=== PATIENT | male | born 1970 | race Caucasian/White ===

== ENCOUNTER 2017-05-09 19:47 | Inpatient (IN) | payer OTHER ==
[~2017-05-09] VITALS: Ht 177.8 cm; Wt 210.7 kg
[2017-05-09 20:05] VITALS: BP 210/97; PULSE 108; RESP 16; O2SAT 99
--- NOTE | 2017-05-09 20:51 | ED.REPORT ---
HPI-General Illness Date of Service May 09, 2017 ED Provider: Tomy Syed MD Patient is a 46 year old male with a hx of HTN and DM with a mechanical aortic valve on Warfarin who presents to the ED complaining of rectal bleeding onset this morning. THe blood is bright red and was on the toilet paper and in the toilet bowl. Per , it was dripping down his legs onto the floor. When he got up for dinner, it had soaked through his pants onto his couch. This has been persistent throughout the day today and so he decided, come in to the emergency department. No notable alleviating or exacerbating factors. He denies pain, dysuria, fever, chills, chest pain, SOB, lightheadedness, or any other symptoms. He has had less severe rectal bleeding previously. Nursing Notes Stated Complaint: RECTAL BLEEDING Chief Complaint: General Complaint Nursing Notes Reviewed: Yes Allergies: Coded Allergies: amoxicillin (Verified Allergy, Unknown, 05/09/17) hydrocodone (Verified Allergy, Unknown, 05/09/17) Scheduled Allopurinol (Allopurinol) 100 Mg Tablet 100 MG PO BID Amlodipine (Amlodipine) 10 Mg Tablet 10 MG PO HS Atorvastatin Calcium (Atorvastatin Calcium) 40 Mg Tablet 40 MG PO DAILY Insulin Detemir (Levemir Flextouch) 100 Unit/1 Ml Insuln.pen 80 UNIT SQ HS Insulin Detemir (Levemir Flextouch) 100 Unit/1 Ml Insuln.pen 70 UNIT SQ MORNING Lisinopril (Lisinopril) 40 Mg Tablet 40 MG PO MORNING Metformin (Metformin) 500 Mg Tablet 500 MG PO BID Metoprolol Tartrate (Metoprolol Tartrate) 100 Mg Tablet 100 MG PO BID Multivitamin (Multivitamins) 1 Each Capsule 1 EACH PO DAILY Warfarin Sodium (Warfarin Sodium) 7.5 Mg Tablet 7.5 MG PO ,,,,SAT,TUE Warfarin Sodium (Warfarin Sodium) 10 Mg Tablet 10 MG PO TUESDAY General Time Seen by MD: 20:42 Chief Complaint Other (Rectal bleeding) Hx Obtained From: Patient, Spouse Arrived By: Walk-in Sudden in Onset?: Yes Similar Sx Previous: Yes Past Medical History Past Medical History Mechanical aortic valve on Warfarin Reports: Diabetes mellitus, Hypertension Past Surgical History Aortic valve repair Surgical repair of vein in leg Reports: Appendectomy Smoking History Unknown if Ever Smoker Social History Alcohol Use: "Social" Drug Use: Denies drug use Other Social History: Review of Systems +rectal bleeding Full Review of Systems Constitutional: Denies: Chills, Fever Respiratory: Denies: Shortness of breath Cardiovascular: Denies: Chest pain Male: Denies Dysuria Neurologic: Denies: Lightheaded Complete sys rev & neg: except as marked. Physical Exam Vital Signs Vital Signs Date Time Temp Pulse Resp B/P Pulse Ox O2 Delivery O2 Flow Rate FiO2 05/09/17 22:00 118 23 187/72 98 Room Air 05/09/17 20:05 36.8 108 16 210/97 99 Room Air Initial VS: Reviewed, Vital signs abnormal General/Constitutional: Awake, Alert, Well appearing, Well developed, Well nourished Appearance / Presentation: Positive: Obese, morbidly Not diaphoretic. Head / Eyes: Atraumatic, Normocephalic EOM are normal. Pupils are equal, round, and reactive to light ENT: Airway patent Oropharynx is clear and moist. No oropharyngeal exudate. Neck: Supple no tracheal deviation. Respiratory / Chest: No respiratory distress Effort normal and breath sounds normal Heart Rate / Rhythm: Positive: Tachycardia regular rhythm. Equal and intact distal pulses throughout. Upper Extremities Upper Extremity / MS: Atraumatic Range of motion grossly intact, moving all extremities. No tenderness appreciated. Lower Extremity / Pelvis / MS: Atraumatic Range of motion grossly intact, moving all extremities. No tenderness appreciated. Skin: Warm, Dry no rashes or pallor appreciated. Rectal for Blood: Positive: Blood, grossly present Neurologic: Oriented X3, Speech NL Grossly nonfocal exam. Strength and sensation intact and equal to bilateral upper and lower extremities. Psychiatric: Affect NL, Mood NL Behavior appears normal. Interpretation & Diagnostics Lab Results Interpretation Result Diagram: 05/10/17 0053 05/09/172048 Test 05/09/17 20:49 White Blood Count 12.2th/mm3 (3.8-10.1) Red Blood Count 4.14mil/mm3 (4.40-5.80) Mean Corpuscular Volume 88.4fL (81-100) Mean Corpuscular Hemoglobin 27.5pg (27.0-35.0) Mean Corpuscular Hemoglobin Concent 31.1% (32.0-37.0) Red Cell Distribution Width 14.8% (12.3-15.4) Platelet Count 291bil/L (150-400) Neutrophils (%) (Auto) 75.7% (40-74) Lymphocytes (%) (Auto) 13.0% (14-46) Monocytes (%) (Auto) 7.3% (4-12) Eosinophils (%) (Auto) 2.9% (0-5) Basophils (%) (Auto) 0.5% (0-3) Prothrombin Time 26.3sec (8.1-12.5) Prothromb Time International Ratio 2.41ratio Sodium Level 133mEq/L (134-144) Potassium Level 4.5mEq/L (3.5-5.2) Chloride Level 97mEq/L (97-108) Carbon Dioxide Level 23mmol/L (18-29) Blood Urea Nitrogen 40mg/dL (6-24) Creatinine 1.68mg/dL (0.76-1.27) Estimat Glomerular Filtration Rate 47mL/min (>59) Glucose Level 172mg/dL (60-99) Calcium Level 9.4mg/dL (8.5-10.1) Total Bilirubin 0.3mg/dL (0.0-1.2) Aspartate Amino Transf (AST/SGOT) 15U/L (0-50) Alanine Aminotransferase (ALT/SGPT) 14U/L (0-44) Alkaline Phosphatase 154U/L (25-150) Total Protein 8.1g/dL (6.4-8.4) Albumin 3.2g/dL (3.4-5.0) Hold Gaona Top Tube Received (Received) ECG Interpretation ECG Interpretation: Sinus tachy rate 104 Time: 00:32 Interpreted by: ED physician Re-Eval/Medical Decision Med Decision/Clinical Course In summary, 46-year-old male with a past medical history notable for hypertension, diabetes, aortic valve replacement on warfarin, and morbid obesity presenting to the ED for evaluation of bright red blood per rectum since earlier today. No abdominal pain or tenderness that would suggest a surgical cause at this time. Patient tachycardic upon arrival. Gastroenterology consulted. Patient's INR is therapeutic, will need to be reversed. Consented for FFP. Patient also given vitamin K. Patient will be admitted to a monitored bed for further management and evaluation, repeat CBC. I am concerned that he could decline. Gastroenterology will perform a scope in the morning unless the patient has a change in his clinical status overnight. This was discussed with the hospitalist. Patient agreeable to the plan as stated, no further questions. Time of Eval: 23:15 Re-Evaluation/Progress Note: Rechecked patient. He feels like he is having more bleeding. Discussed plan for admission. Patient understands and agrees with plan. All questions addressed at this time. Consultation #1: Referral / Consult Name: Deion Mercedes MD Call Returned at: 22:38 Note: Discussed pt's case with GI. Reverse with FFP. Admit to hospital. Consultation #2: Referral / Consult Name: Dominik Garcia MD Consulted With: Hospitalist Call Returned at: 22:52 Manager Underwriting: Will see patient, Agrees with eval, Agrees with plan, Accepts admit Note: Discussed pt's case. Accepts admit. Counseled Regarding: Diagnosis, Lab results, Need for admission Discharge & Departure Primary Impression: Acute GI bleeding Disposition: ADMITTED TO HOSPITAL Discharge Condition All VS Reviewed: Yes Condition: Stable Referrals: ORVILLE JONES DO (PCP) Crit Care Except Billable Proc Time Spent: 30-74 minutes Services Performed: Patient management by me, Time spent at bedside, Reviewing test results, Discussing patient care, Documentation in record Critical Care Notes: Please see MDM Scribe Attestation Portions of this note were transcribed by Renay Wilks. I, Dr. Syed personally performed the history, physical exam and medical decision-making; I reviewed and confirmed the accuracy of the information in the transcribed note. Signed by: Renay Wilks 05/09/17, 0935 copies to: ORVILLE JONES William B MD May 09, 2017 20:51 RENAY WILKS May 09, 2017 22:17
[2017-05-09 20:58] LABS: BASOPHILS % (AUTO) 0.5 % (0-3); EOSINOPHILS % (AUTO) 2.9 % (0-5); MONOCYTES % (AUTO) 7.3 % (4-12); Mean Corpuscular Hemoglobin 27.5 pg (27.0-35.0); Mean Corpuscular Volume 88.4 fL (81-100); NEUTROPHILS % (AUTO) 75.7 % (40-74); Platelet Count 291 bil/L (150-400)
[2017-05-09 21:16] LABS: INR 2.41 ratio
[2017-05-09 22:00] VITALS: BP 187/72; PULSE 118; RESP 23; O2SAT 98
[2017-05-09] MEDS ORDERED: 0.9% Sodium Chloride 1,000 ML IV ONE (22:36)
[2017-05-09] MEDS ORDERED: Polyethylene Glycol (PEG) 17 Gm Powder PO PRN (23:05)
[2017-05-09] MEDS ORDERED: Ondansetron 2 mg/mL 2 mL Inj IVPUSH PRN (23:05)
[2017-05-09] MEDS ORDERED: Alum-Mag Hydrox-Simeth 30 mL Suspension PO PRN (23:05)
[2017-05-09] MEDS ORDERED: LISI40TA PO (23:32)
[2017-05-09] MEDS ORDERED: INSU100I25 SQ ×2 (23:32)
[2017-05-09] MEDS ORDERED: WARF10TA4 PO (23:32)
[2017-05-09] MEDS ORDERED: AMLO10TA3 PO (23:32)
[2017-05-09] MEDS ORDERED: ATOR40TA69 PO (23:32)
[2017-05-09] MEDS ORDERED: ZYL100 PO (23:32)
[2017-05-09] MEDS ORDERED: METO100T3 PO (23:32)
[2017-05-09] MEDS ORDERED: MULT1CAP33 PO (23:32)
[2017-05-09] MEDS ORDERED: WARF7.5T4 PO (23:32)
[2017-05-09] MEDS ORDERED: 0.9% Sodium Chloride 250 ML IV ONE (23:45)
[2017-05-09] MEDS ORDERED: diphenhydrAMINE 25 mg Capsule PO ONE (23:45)
[2017-05-09] MEDS ORDERED: Phytonadione (Adult) 10 MG in Dextrose 5%-Pha MIX 50 ML IV ONE (23:45)
[2017-05-09 23:50] VITALS: PULSE 123; RESP 24; O2SAT 95
--- NOTE | 2017-05-09 23:55 | PCM.HPMED ---
Subjective Date of Service May 09, 2017 Primary Provider: Admitting Physician: Dominik Garcia MD Primary Care Physician: Wendy Morales DO Attending Physician: Dominik Garcia MD Chief Complaint: Bright red blood per rectum History of Present Illness: Patient is a morbidly obese 46-year-old gentleman history of hypertension, congestive heart failure, bicuspid aortic valve status post mechanical valve placement, warfarin using, presents with 1 day bright red blood per rectum. First onset this morning when first using the commode, denies any lightheadedness, dizziness, pain, said he typically strains a little with defecation. Came to the emergency department after noticing he soaked through his pants and into the couch cushion this afternoon. Claims to have one instance of this before approximately a year ago was not described and self resolved. Denies any history of known hemorrhoids. Denies any lightheadedness , dizziness, chest pain, shortness of breath, constipation or diarrhea, no nausea or vomiting, no weakness, no dysuria, no numbness weakness tingling in his arms anterior legs, no changes in vision, no confusion. In the ER he was afebrile, heart rate 108, respiratory is 18 heart rate 210/97 recheck 2 hours later he remained tachycardic, became tachypneic 23 breaths per minute, heart rate mildly decreased to 187/72 12.2 white blood cells, hemoglobin 11.4, neutrophils 75.7%, sodium 133 BUN 40, creatinine 1.68, glucose 172, alkaline phosphatase 154, albumin 3.2 INR 2.41 Patient was given FFP and vitamin K and metoprolol IV push in the emergency department. Dr. Mercedes, patrol conductor health analytics consultant, was notified by the emergency department of the patient and according to documentation agrees to see patient in the morning. Review of Systems: A comprehensive review of systems was conducted with the patient and found to be negative except as above in the history of presenting illness. Allergies Coded Allergies: amoxicillin (Verified Allergy, Unknown, 05/09/17) hydrocodone (Verified Allergy, Unknown, 05/09/17) Home Medications Allopurinol 100 mg by mouth twice a day Amlodipine 10 mg by mouth at night before bed Atorvastatin 40 mg by mouth daily Insulin detemir 80 units subcutaneously every night before bed Insulin detemir 70 units subcutaneous every morning Lisinopril 40 mg every morning by mouth Metoprolol 100 mg by mouth twice a day Multivitamin once a day Warfarin 7-1/2 mg by mouth Tuesday, Tuesday, , Tuesday, Tuesday, Tuesday Warfarin 10 mg by mouth every Tuesday. PMH Morbid obesity Hyperlipidemia Chronic kidney disease stage III Necrobiosis lipoidica diabeticorum Diabetes mellitus type II insulin using Hypertension Surgical History Appendectomy in childhood Mechanical valve placement Family History Father the seizure disorder Mother multiple sclerosis Social History Hx Alcohol Use: Yes (socially) Hx Substance Use: No Hx Tobacco Use: No Smoking Status: Never Smoker Living Arrangement: with Family Exam Vital Signs Vital Sign - Last Date Time Temp Pulse Resp B/P Pulse Ox O2 Delivery O2 Flow Rate FiO2 05/09/17 22:00 118 23 187/72 98 Room Air 05/09/17 20:05 36.8 Exam General: Laying in bed, no apparent distress. Morbidly obese HEENT: Normocephalic, atraumatic, EOMI grossly, mucous membrane moist, neck supple without lymphadenopathy, PERRLA. Cardiovascular: Tachycardic, regular rhythm, audible click from mechanical valve 04/26, peripheral pulses 2/4 equal bilaterally Pulmonary: Clear to auscultation bilaterally, no W/R/R. Abdominal: Soft to palpation, bowel sounds present 4, no hepatosplenomegaly. Negative rebound. GI: Rectum is grossly bloody, clotted blood over anus, no bleeding hemorrhoids seen on visual exam of the superficial anus. engorged hemorrhoid posterior anus. Extremities: Severe bilateral lower extremities edema, hyperpigmentation, moderate pitting, some excoriation, no open sores bleeding or weeping. Neuro: Neurologically grossly intact, strength is equal bilaterally upper and lower extremities. MSK: Gait is normal, able to move extremities on their own volition, strength 5 out of 5 equal bilaterally to upper and lower extremities. Lab and Diagnostics Result Diagram: 05/09/17204805/09/172048 Assessment & Plan 46-year-old gentleman with hypertension, diabetes light is type II insulin using , mechanical valve anticoagulated at therapeutic INR presents with 1 day of bite red blood per rectum, nonpainful, tachycardic and hypertensive. Acute lower gastrointestinal hemorrhage, present on admission, active INR 2.4, tachycardic, hemoglobin 11.4 Administer FFP 4 unit, 10 mg vitamin K IV Recheck H&H Cross match and hold 2 units PRBC Transfusion threshold hemoglobin of [address] Mercedes consulted, anticipate endoscopy tomorrow a.m. Acute Hypertensive urgency, present on admission, active No headaches, no chest pain, no shortness of breath claims to have taken his medications Metoprolol IV push 5 mg every 5 minutes for total of 3 for blood pressure greater than 170, and tachycardia. Now. Continue home blood pressure medications:Amlodipine 10 mg by mouth nightly, lisinopril 40 mg every morning by mouth, metoprolol 100 mg by mouth twice a day Tachycardia, chronicity unknown known, POA, active Patient has remained tachycardic throughout his entire time in the emergency department Patient states that he has had a fast heart rate like this for a little over a month since his last doctor's visit. EKG Placed patient on telemetry Chronic diabetes mellitus type II insulin using, POA, active Hemoglobin A1c as of : 9.3%, blood glucose today 172 Medium-dose correctional insulin Continue home detemir dosage Diabetes education Chronic kidney disease stage III, POA, stable Creatinine 1.68, BUN 40, review of outpatient labs for over a year shows BUN chronically elevated, 39 as of 04/07/2017. Creatinine chronically elevated 1.42 as of the same date. Creatinine mildly elevated compared to 1 month ago, IV fluids 100 mL per hour, normal saline Reassess with morning chemistries If continues to worsen consider nephrology consultation Patient admitted under inpatient status with expected length of stay > 2 midnights for severity of present symptoms, complexities of treatment plan and risk for adverse events Pain Evaluation: Adequate Pain Control GI Prophylaxis: Not indicated VTE Prophylaxis Indicated: Contraindicated Resuscitation Status: CPR: Attempt Resuscitation Attending Statement The patient was seen and examined together with Dr. Hoyos on 05/09 and I agree with the history, exam and plan as outlined in the note above. Wesley De Leon DO May 09, 2017 23:55 Dominik Garcia MD May 10, 2017 19:09
[2017-05-09] MEDS: MeTOProlol 1 mg/mL 5 mL Inj IVPUSH SCH (23:56)
[2017-05-10] VITALS (32 sets, daily range): BP systolic 148–200; BP diastolic 64–112; PULSE 93–120; RESP 14–22; O2SAT 94–98
[2017-05-10] MEDS ORDERED: Dextrose 10% 250 ML IV PRN (00:15)
[2017-05-10] MEDS: MeTOProlol 1 mg/mL 5 mL Inj IVPUSH SCH ×4 (00:35→14:25)
[2017-05-10] MEDS: 0.9% Sodium Chloride 1,000 ML IV SCH ×2 (01:35→08:24)
[2017-05-10] MEDS ORDERED: METF500T4 PO (01:41)
[2017-05-10] MEDS: Insulin Human REGular 300 Unit/3 mL Inj SUBQ SCH ×4 (02:28→21:43)
--- NOTE | 2017-05-10 02:37 | NUR ---
admit note: pt. admitted for episode of rectal bleeding this am, pt. states was bright red. pt. had similar episode last year. pt. denies nausea, denies pain. transfusion of 4 units FFP's started.
[2017-05-10 05:22] LABS: BASOPHILS % (AUTO) 0.3 % (0-3); EOSINOPHILS % (AUTO) 2.5 % (0-5); MONOCYTES % (AUTO) 6.6 % (4-12); Mean Corpuscular Hemoglobin 27.4 pg (27.0-35.0); Mean Corpuscular Volume 88.6 fL (81-100); NEUTROPHILS % (AUTO) 76.2 % (40-74); Platelet Count 259 bil/L (150-400)
[2017-05-10 05:36] LABS: INR 1.49 ratio
--- NOTE | 2017-05-10 06:31 | NUR ---
GI bleed: bed change done this morning, pt. had bleeding through two pads w/ blood clots. INR down to 1.49 after 4 units FFP's, hgb 9.6 this am. Pt. is asymptomatic.
[2017-05-10] MEDS ORDERED: Labetalol 5 mg/mL 4 mL Inj IVPUSH ONE (07:35)
[2017-05-10] MEDS ORDERED: PEG/Electrolytes 4,000 mL Solution PO ONE ×2 (08:15→09:05)
[2017-05-10] MEDS: Lisinopril 40 Tablet PO SCH (08:20)
[2017-05-10] MEDS ORDERED: INSULIN DETEMIR 70 UNIT SQ SCH (08:30)
[2017-05-10] MEDS ORDERED: Labetalol 5 mg/mL 20 mL Inj IVPUSH ONE (08:40)
[2017-05-10] MEDS: 0.9% Sodium Chloride 250 ML IV SCH (08:42)
--- NOTE | 2017-05-10 08:44 | CONS ---
[address] [address] CONSULTATION REPORT PATIENT: DIANE TORRES : 1970 MR#: [id number] ADMIT: 05/09/2017 JOB ID: [id number] DATE OF SERVICE: HISTORY OF PRESENT ILLNESS: I had the pleasure of seeing this patient at [facility] for evaluation of GI bleeding. This is a 46-year-old gentleman with several medical issues including morbid obesity, high blood pressure, diabetes, mechanical aortic heart valve, on warfarin, who also has a history of chronic kidney disease stage 2, appendectomy, who came in with rectal bleeding for about a day. This happened about a year ago but not to this extent. His last bowel movement was yesterday morning. It is not clear whether this started after a bowel movement, but he had a bowel movement which was normal. Then, he started having slow dripping of bright red blood per rectum. This continued throughout the day. He did not have any abdominal pain, but a small amount of persistent blood was coming out of his rectum, and later clots were coming out. The patient was seen in the emergency department. He denied any lightheadedness, dizziness, but he was tachycardic, with severe hypertension. Hemoglobin in the ED was 11.4, and INR was elevated at 2.41. I was notified last night at 10:30 and, since he was bleeding, recommended reverse of anticoagulation and start the patient on GoLYTELY. Unfortunately, the patient did not receive GoLYTELY last night. However, he continued to have slow dripping of blood throughout the night. His INR is now 1.49, and his hemoglobin went from 11.4, at midnight 10.2, and now at 5 o'clock in the morning, 9.6. He is hemodynamically stable but a little bit on the tachy side. He denies any nausea, vomiting, fever, chills, headaches, blurred vision, dizziness, lightheadedness, chest pain, shortness of breath, abdominal pain, black stools. He denies any jaundice. PAST MEDICAL HISTORY: As above. PAST SURGICAL HISTORY: As above. SOCIAL HISTORY: He uses alcohol socially. Denies smoking. Denies use of drugs. FAMILY HISTORY: Noncontributory. MEDICATIONS AT HOME: Include allopurinol, amlodipine, atorvastatin, insulin, lisinopril, metformin, multivitamin, and Coumadin. MEDICATIONS HERE: Include allopurinol, metoprolol, insulin, multivitamin, Norvasc, Lopressor, Zestril, atorvastatin, MiraLAX, senna, Zofran, Maalox. PHYSICAL EXAMINATION: The patient is alert, oriented, comfortable. Temp 37.1, pulse 106, respirations 16, blood pressure 174/84. Head and neck: Obese neck. Could not appreciate lymphadenopathy. Lungs: Clear anteriorly. Cardiovascular: Regular rate and rhythm, with a mechanical click at S1. Abdomen: Soft, nontender, obese, and nondistended, with decreased bowel sounds. Extremities: No pitting edema of the ankles. Skin shows no jaundice. LABORATORY DATA: As above. IMPRESSION and PLAN: A 46-year-old gentleman who was anticoagulated for a mechanical aortic valve, comes in with rectal bleeding throughout the day, with downtrending of hemoglobin downward. He is hemoglobin is 9.6, and he says he still has slow dripping of red blood. He is a little bit tachycardic, but he is not symptomatic for hypovolemia otherwise. He has no chest pain, no shortness of breath. Most likely, this is rectal bleeding. Would like to get him ready for a colonoscopy. CLEMENTE
[2017-05-10] MEDS: Insulin GLARgine 100 Unit/mL Syringe SUBQ SCH ×2 (08:50→21:42)
[2017-05-10] MEDS ORDERED: MeTOProlol 1 mg/mL 5 mL Inj IVPUSH ONE (12:35)
--- NOTE | 2017-05-10 13:50 | PCM.PNMED ---
Subjective Date of Service May 10, 2017 Subjective Patient is quite pleasant and appropriate. Continues to have bright red blood per rectum. He is valiantly consuming his bowel prep. He denies chest pain, palpitations, SOB beyond baseline, abdominal pain, or dysuria. The patient received 4U FFP overnight, 2 more this AM per GI recommendation Comprehensive ROS negative except as listed above. Exam Vital Signs Vital Sign - Last Date Time Temp Pulse Resp B/P Pulse Ox O2 Delivery O2 Flow Rate FiO2 05/10/17 13:00 36.6 102 16 187/103 94 Room Air Intake and Output 05/09/17 05/09/17 05/10/17 Cumulative From/Thru 15:00 23:00 07:00 05/09/17 20:05 - 05/10/17 05:59 Intake Total 1249 ml 1249 ml Output Total 400 ml 400 ml Balance 849 ml 849 ml Intake IV Total 1049 ml 1049 ml Packed Cells 200 ml 200 ml Output Urine Total 400 ml 400 ml # Voids 1 1 Exam Gen: A/O x3 pleasant cooperative super morbidly obese gentleman in NAD Neck: Large circumference neck, no JVD, no thyromegaly HEENT: PERRL, EOMI, no scleral icterus, no conjunctival pallor, gums not bleeding CV: Regular rhythm, tachycardia with rate approx 110, audible click from mechanical valve Resp: Distant breath sounds secondary to habitus, no discernible wheezing rales or rhonchi Abd: Large protuberant obese abdomen, cannot discern BS, soft, non tender Extr: chronic venous stasis changes in BL LE, calves taught and non tender, mild LE edema BL Neuro: CN 2-12 grossly intact, no focal neurologic deficit Psych: Pleasant and appropriate mood and affect. IVs and Medications IV Fluids NS @ 100 ml/hr Medications Reviewed: Medications were reviewed in detail Lab and Diagnostics Item Value Date Time Red Blood Count 3.50 mil/mm3 L 05/10/17 0510 Mean Corpuscular Volume 88.6 fL 05/10/17 0510 Mean Corpuscular Hemoglobin 27.4 pg 05/10/17 0510 Mean Corpuscular Hemoglobin Concent 31.0 % L 05/10/17 0510 Red Cell Distribution Width 14.7 % 05/10/17 0510 Neutrophils (%) (Auto) 76.2 % H 05/10/17 0510 Lymphocytes (%) (Auto) 14.1 % 05/10/17 0510 Monocytes (%) (Auto) 6.6 % 05/10/17 05 Eosinophils (%) (Auto) 2.5 % 05/10/17 05 Basophils (%) (Auto) 0.3 % 05/10/17 05 Estimat Glomerular Filtration Rate 55 mL/min 05/10/17 05 Calcium Level 8.9 mg/dL 05/10/17 05 Prothrombin Time 16.1 sec H 05/10/17 05 Prothromb Time International Ratio 1.49 ratio 05/10/17 05 Result Diagram: 05/10/17 0505/10/17 05 Assessment & Plan 46-year-old gentleman with super morbid obesity, hypertension, diabetes light is type II insulin using, mechanical valve anticoagulated at therapeutic INR presents with 1 day of bright red blood per rectum, nonpainful, tachycardic and hypertensive. Acute lower gastrointestinal hemorrhage, present on admission, active -INR 2.4, tachycardic, hemoglobin 11.4 upon presentation -Administer FFP 4 unit, 10 mg vitamin K IV upon arrival -tracking H&H -Cross match and hold 2 units PRBC -Transfusion threshold hemoglobin of 8 or if symptomatic -Dr. Mercedes consulted, anticipate endoscopy once bowel prep is adequate Acute Hypertensive urgency, present on admission, active -No headaches, no chest pain, no shortness of breath claims to have taken his medications -Metoprolol IV push 5 mg every 5 minutes for total of 3 for blood pressure greater than 170, and tachycardia Q12 -Continue home blood pressure medications:Amlodipine 10 mg by mouth nightly, lisinopril 40 mg every morning by mouth, metoprolol 100 mg by mouth twice a day Super morbid obesity, POA, chronic. Active -Multiple person assist for any lift or transfer -Bariatric bed and transfer device -Nutritional counseling on DC Tachycardia, chronicity unknown known, POA, active -Patient has remains tachycardic -Patient states that he has had a fast heart rate like this for a little over a month since his last doctor's visit. -EKG as above -Placed patient on telemetry -Beta blockade as above Chronic diabetes mellitus type II insulin using, POA, active -Hemoglobin A1c as of : 9.3%, blood glucose today 172 -Medium-dose correctional insulin -Continue home detemir dosage -Diabetes education Chronic kidney disease stage III, POA, stable -Creatinine 1.68, BUN 40, review of outpatient labs for over a year shows BUN chronically elevated, 39 as of 04/07/2017. Creatinine chronically elevated 1.42 as of the same date. -Creatinine mildly elevated compared to 1 month ago, IV fluids 100 mL per hour, normal saline -Reassess with morning chemistries -If continues to worsen consider nephrology consultation Disposition: Patient is anticipated to undergo colonoscopy later today, will likely be able to DC home tomorrow should a correctable source of bleeding be identified and treated, pending pos procedural recovery. Pain Evaluation: Adequate Pain Control GI Prophylaxis: Not indicated VTE Prophylaxis: Other (withholding due to GI bleed) Resuscitation Status: CPR: Attempt Resuscitation Attending Statement The patient was seen and examined together with Dr. Ontiveros on 05/10/17 and I have added additional information to the note above. Beni Ontiveros DO May 10, 2017 13:50 Pia Delong DO May 12, 2017 07:40
[2017-05-10] MEDS ORDERED: Lactated Ringer's 1,000 ML IV ONE ×4 (15:09)
--- NOTE | 2017-05-10 15:16 | PCM.HPANE ---
Patient Data Date of Service: May 10, 2017 (1400) Surgeon Admitting Provider:Dominik Garcia MD Attending Provider:Dominik Garcia MD Primary Care Physician:Wendy Morales DO Other Provider:Gurvinedr Blevins Anesthesia Reason for Visit Acute Gi Bleed Ht/WT & BMI Height (Feet): 5 Height (Inches): 10.00 Weight (Kilograms): 202.900 Body Mass Index 64.00 Allergies Coded Allergies: amoxicillin (Verified Allergy, Unknown, 05/09/17) hydrocodone (Verified Allergy, Unknown, 05/09/17) Past Anesthesia History Anesthesia History: Denies:: Fam Malignant Hypertherm Diabetes History Hx Diabetes?: Yes (on insulin) Current Bedside Blood Glucose: 199 MRSA MRSA: No Medications Blood Thinner: Coumadin Last Dose Blood Thinner: May 09, 2017 Reported Medications Metformin 500 Mg [id number] Mg PO BID Ref 0 05/10/17 Insulin Detemir (Levemir Flextouch)100 Unit/1 Ml Insuln.pen70 Unit SQ MORNING 05/09/17 Insulin Detemir (Levemir Flextouch)100 Unit/1 Ml Insuln.pen80 Unit SQ HS 05/09/17 Lisinopril 40 Mg Erzgup97 Mg PO MORNING 30 Days Ref 0 05/09/17 Warfarin Sodium 10 Mg [id number] Mg PO TUESDAY 30 Days Ref 0 05/09/17 Warfarin Sodium 7.5 Mg Tablet7.5 Mg PO ,W,,F,SAT,SUN 30 Days Ref 0 05/09/17 Amlodipine 10 Mg Sdugmj95 Mg PO HS Ref 0 05/09/17 Metoprolol Tartrate 100 Mg [id number] Mg PO BID 30 Days Ref 0 05/09/17 Atorvastatin Calcium 40 Mg Edezeo15 Mg PO HS Ref 0 05/09/17 Allopurinol 100 Mg [id number] Mg PO BID Ref 0 05/09/17 Multivitamin (Multivitamins)1 Each Capsule1 Each PO DAILY 05/09/17 History History of ENT Problems?: No HEENT History: Denies:: Abnormal Airway Cataracts Difficult Intubation Dysphagia Glaucoma Hearing Problem Sinus Problem TMJ Denture Type: None Teeth Condition: Within Normal Limits Hx of Heart Problems?: Yes Cardiovascular History: Positive for:: Cardiac Surgery Hypertension Valvular Heart Disease ( 5 years ago) Denies:: AICD Abdominal Aortic Aneurism Atrial Fibrillation Chest Pain Congestive Heart Failure Coronary Artery Disease Edema Heart Murmur Irregular Heartbeat Pacemaker Peripheral Vascular Rheumatic Fever Thrombophlebitis Other Cardiac History: valve replacement 2011 Hx of Respiratory Problem?: No Respiratory History: Positive for:: Use of C-PAP Machine (noncompliant) Denies:: Asthma COPD Chest Surgery Cough Dyspnea Emphysema Hemoptysis Oxygen Administration Pneumonia Pulmonary Embolism Tuberculosis Use of Inhalers / NEBS Hx Neurologic Problems?: No Neurological History: Denies:: CVA Hx of GI Problems?: Yes Hx of Problems?: No Hx Musculoskeletal Problems?: No Hx of Psycho/Social Problems?: No Psycho Social History: Denies:: Anxiety Hx Depression Hx Surgeries?: Yes (appy, valve replaced) History Blood Transfusions: Positive for:: Accept Blood Products? Denies:: Blood Transfuse Reaction Blood Transfusions Hx Diabetes: Yes (on insulin)Bedside Blood Glucose: 199 Hx Alcohol Use: YesAlcoholic Drinks Per Day: rareHx Substance Use: No Smoking Status: Never Smoker Stop/Bang Treated for Sleep Apnea?: No Do You Have a CPAP Machine?: No S-Snoring: Do You Snore Loudly: No T-Tired: feel tired, fatigued: No O-Obsered: Observed not breath: No P-Blood Pressure: treated: Yes B- Body Mass Index > 35 kg/m2: Yes A- Age over 50: No N- Neck Large Circumference: Yes G- Gender Male: Yes MAGDY Total Score: 4 Risk Assessment Category Category 1A: Patient has history of documented sleep apnea, and HAS NOT received any narcotic, sedative or anesthesia administration during this stay. Category 1B: Patient has history of documented sleep apnea, and HAS received any narcotic , sedative or anesthesia administration during this stay Category 2: Patient has SUSPECTED Obstructive Sleep Apnea, and HAS received any narcotic , sedative or anesthesia administration during this stay. Category 3: Patient has SUSPECTED Obstructive Sleep Apnea and HAS NOT received narcotic, sedative or anesthesia administration during this stay. Category 4: Outpatient in Procedural Areas with known sleep apnea or who screen positive for High Risk via the STOP/BANG questionnaire. Exam Exam Vital Signs Vital Signs Date Time Temp Pulse Resp B/P Pulse Ox O2 Delivery O2 Flow Rate FiO2 05/10/17 15:01 36.4 103 22 189/90 98 Room Air 05/10/17 13:00 36.6 102 16 187/103 94 Room Air 6/20/17 12:58 36.6 102 16 187/103 05/10/17 12:45 36.7 100 16 186/112 05/10/17 12:19 36.0 100 14 183/100 05/10/17 11:58 36.7 104 14 184/105 05/10/17 11:50 36.7 104 14 184/105 05/10/17 10:07 36.4 102 14 170/88 05/10/17 09:48 36.4 103 14 183/82 05/10/17 08:43 37.3 117 16 177/72 94 Room Air 05/10/17 08:30 120 General Appearance: Alert, Oriented X3, Cooperative, No Acute Distress HEENT/AIRWAY: MP 3 Lungs: Clear to Auscultation Heart: Exam Unremarkable Meds/Labs/Diagnostics Admission Meds Current Medications Sodium Chloride 1,000 ml @ 0 mls/hr Q0M ONCE IV Last administered on 23:55; Start 05/09/17 at 22:36; Stop 05/09/17 at 22:38; Status DC Sodium Chloride (Normal Saline) 1,000 ml @ 100 mls/hr Q10H IV Last administered on 05/10/17 08:24; Start 05/09/17 at 23:04 Metoprolol Tartrate (Lopressor Inj) 5 mg Q5MIN IVPUSH Last administered on 05/10 14:25; Start 05/09/17 at 23:40 Diphenhydramine HCl 25 mg 25 mg ONCE ONCE PO Last administered on 05/10/17 01 :35; Start 05/09/17 at 23:45; Stop 05/09/17 at 23:47; Status DC Phytonadione/ Dextrose/Water (Vitamin K (Adult)/D5W Pharmacy To Mix) 51 ml @ 102 mls/hr ONCE ONCE IV Last administered on 05/10/17 00:35; Start 05/09/17 at 23:45; Stop 05/10/17 at 00:14; Status DC Allopurinol (Zyloprim) 100 mg BID PO Last administered on 05/10/17 08:20; Start 05/09/17 at 23:50 Lisinopril (Zestril) 40 mg DAILY PO Last administered on 05/10/17 08:20; Start 05/10/17 at 08:30 Metoprolol Tartrate (Lopressor) 100 mg BID PO Last administered on 05/10/17 08 :20; Start 05/10/17 at 08:30 Multivitamins/ Minerals Therapeutic (Thera Vitamins w/Mineral) 1 tablet DAILY PO Last administered on 05/10/17 08:20; Start 05/10/17 at 08:30 Insulin Human Regular (HUMulin-R Insulin Inj) * High Dose Insu... Q6 SUBQ Last administered on 05/10/17 14:25; Start 05/10/17 at 02:30 Insulin Glargine 70 unit 70 unit DAILY SUBQ Last administered on 05/10/17 08: 50; Start 05/10/17 at 08:30 Sodium Chloride (Normal Saline) 250 ml @ 10 mls/hr Q24H IV Last administered on 05/10/17 08:42; Start 05/10/17 at 08:15 Polyethylene Glycol/ Electrolytes (Colyte) 4,000 ml ONCE ONCE PO Last administered on 05/10/17 08:51; Start 05/10/17 at 08:15; Stop 05/10/17 at 08:25 ; Status DC Labetalol HCl (Trandate Inj) 20 mg ONCE ONCE IVPUSH Last administered on 09:02; Start 05/10/17 at 08:40; Stop 05/10/17 at 08:41; Status DC Polyethylene Glycol/ Electrolytes (Colyte) 4,000 ml ONCE ONCE PO Last administered on 05/10/17 09:09; Start 05/10/17 at 09:05; Stop 05/10/17 at 09:20 ; Status DC Metoprolol Tartrate 5 mg 5 mg ONCE ONCE IVPUSH Last administered on 05/10/17 12:44; Start 05/10/17 at 12:35; Stop 05/10/17 at 12:49; Status DC Lactated Ringer's (Lr) 1,000 ml @ STK-MED ONCE IV Last administered on 05/10 15:09; Start 05/10/17 at 15:09; Stop 05/10/17 at 15:10; Status DC Bedside Blood Glucose: 199 Labs Test 05/09/17 20:49 05/10/17 01:09 6/20/17 05:10 Total Bilirubin 0.3mg/dL (0.0-1.2) Aspartate Amino Transf (AST/SGOT) 15U/L (0-50) Alanine Aminotransferase (ALT/SGPT) 14U/L (0-44) Alkaline Phosphatase 154U/L (25-150) Total Protein 8.1g/dL (6.4-8.4) Albumin 3.2g/dL (3.4-5.0) Hold Gaona Top Tube Received (Received) Hold Urine Received (Received) White Blood Count 9.7th/mm3 (3.8-10.1) Red Blood Count 3.50mil/mm3 (4.40-5.80) Hemoglobin 9.6g/dL (13.8-17.2) Hematocrit 31.0% (41.0-50.0) Mean Corpuscular Volume 88.6fL (81-100) Mean Corpuscular Hemoglobin 27.4pg (27.0-35.0) Mean Corpuscular Hemoglobin Concent 31.0% (32.0-37.0) Red Cell Distribution Width 14.7% (12.3-15.4) Platelet Count 259bil/L (150-400) Neutrophils (%) (Auto) 76.2% (40-74) Lymphocytes (%) (Auto) 14.1% (14-46) Monocytes (%) (Auto) 6.6% (4-12) Eosinophils (%) (Auto) 2.5% (0-5) Basophils (%) (Auto) 0.3% (0-3) Prothrombin Time 16.1sec (8.1-12.5) Prothromb Time International Ratio 1.49ratio Sodium Level 135mEq/L (134-144) Potassium Level 4.5mEq/L (3.5-5.2) Chloride Level 99mEq/L (97-108) Carbon Dioxide Level 23mmol/L (18-29) Blood Urea Nitrogen 36mg/dL (6-24) Creatinine 1.46mg/dL (0.76-1.27) Estimat Glomerular Filtration Rate 55mL/min (>59) Glucose Level 181mg/dL (60-99) Calcium Level 8.9mg/dL (8.5-10.1) Plan Impression Patient chart reviewed, patient interviewed and anesthestic plan with risks, benefits, and alternatives discussed, and informed consent obtained. ASA Physical Status: ASA3 Severe Disease Anesthetic Plan: MAC Bene/Risks/Altern/Consents: Yes HP Complete Prior to Induction: Yes Lan Gregg MD May 10, 2017 15:16
--- NOTE | 2017-05-10 15:57 | NUR ---
Social Work: Screening/Readiness for Discharge D: EMR reviewed. Pt is a 46 y/o male admitted for GI bleed per H&P. PA met with pt's spouse Rosita Curiel ([phone]) in pt's room to conduct initial screening. Pt was receiving colonoscopy at time of screening and not available. SW provided DPOA/advanced directive ppw at spouse's request and encouraged spouse to have pt provide a copy to the hospital once complete. Spouse stated that pt lives at home with spouse in [place]. Pt's insurance is [email or web address] and [employer]. PCP is Arian Morales DO. Spouse confirmed that she will provide pt transport home when pt is medically stable for discharge. Per MD in AM multi-disciplinary rounds, pt is likely to discharge tomorrow. SW does not anticipate any discharge needs but will continue to follow if needs arise. A: Pt who is reported to be independent at baseline P: Spouse confirmed that she will provide pt transport home when pt is medically stable for discharge. Per MD in AM multi-disciplinary rounds, SW does not anticipate any discharge needs but will continue to follow if needs arise. YESENIA Castellon
--- NOTE | 2017-05-10 16:13 | PCM.ANEP1 ---
Post Anesthesia PACU Phase 1 Assessment Vital Signs Vital Signs Date Time Temp Pulse Resp B/P Pulse Ox O2 Delivery O2 Flow Rate FiO2 05/10/17 16:10 95 18 162/82 96 Room Air 05/10/17 16:00 93 16 153/76 96 Room Air 05/10/17 15:01 36.4 103 22 189/90 98 Room Air 05/10/17 13:00 36.6 102 16 187/103 94 Room Air 05/10/17 12:58 36.6 102 16 187/103 05/10/17 12:45 36.7 100 16 186/112 05/10/17 12:19 36.0 100 14 183/100 05/10/17 11:58 36.7 104 14 184/105 05/10/17 11:50 36.7 104 14 184/105 05/10/17 10:07 36.4 102 14 170/88 05/10/17 09:48 36.4 103 14 183/82 05/10/17 08:43 37.3 117 16 177/72 94 Room Air 05/10/17 08:30 120 Anesthetic Administered: MAC Level of Alertness: Awake, talking Pain: No Nausea or Vomiting: No CV Function & Hydration Stable: Yes Airway Device: Oxygen Delivery: Nasal Cannula Lungs: Clear to Auscultation Dermatome Level: Full Sensation PACU Phase 2 Assessment Complications: No Patient Instructions Provided: N/A Lan Gregg MD May 10, 2017 16:13
--- NOTE | 2017-05-10 16:20 | PCM.ENDCOL ---
Colonoscopy Date of Service: May 10, 2017 Physician Deion Mercedes MD Pre Procedure Diagnosis: Rectal Bleeding Post Procedure Dx & Findings: Hemmorhoid Procedure Colonoscopy PROCEDURE IN DETAIL: Prep adequate Withdrawal time[default value] After unremarkable rectal examination the Olympus video colonoscope was inserted patient's anal canal and was advanced to cecum. Landmarks were identified including the ileocecal valve and appendiceal orifice. Scope was withdrawn systematically. Visualized colonic mucosa showed healthy shiny mucosa with normal healthy-appearing vasculature. Terminal ileum was intubated. Advanced 10 cm. Normal structures of tiny ulcer mass erosion noted. Visualized colonic mucosa showed healthy shiny mucosa was normal healthy-appearing vasculature. In the rectum retroflexion was done which showed hemorrhoids. Anal canal was inspected carefully on the way out and hemorrhoids noted. One of the hemorrhoid appears to have a little defect. Impression Hemorrhoids - with small defect. Most likely cause of the bleeding. Recommendation Advanced diet Resume anticoagulation If rebleed, consider obtaining surgical consult for hemorrhoidectomy. Presedation Assessment Risks and Benefits Informed consent was obtained from the patient after all risks and benefits including but not limited to drug reaction, infection, pain, bleeding, perforation, as well as alternatives were discussed. Patient monitoring Continuous pulse oximetry, cardiac monitoring, blood pressure monitoring, IV access, and oxygen at 2L per nasal cannula. Complications There were no periprocedural complications identified. Post Procedure Plan Post Procedure Recommendations 1. Restrict activities today. 2. Resume normal activities in the morning. 3. Resume medications. 4. Patient informed of normal post procedure side effects as bloating, drowsiness, blood streaking in the stool. 5. average risk CRCS. If colon polyps come back as: -Hyperplastic- can repeat colonoscopy in 10 years -Tubular adenoma- repeat colonoscopy in 5 years -Tubulovillous/villous adenoma- repeat colonoscopy in 3 years -If any dysplasia- return to clinic as soon as possible 6. Please don't hesitate to call me with any questions. Deion Mercedes MD May 10, 2017 16:20
[2017-05-10 17:54] LABS: INR 1.22 ratio
--- NOTE | 2017-05-10 17:56 | NUR ---
A/Ox3, makes needs known, denies pain/discomfort. Hypertensive, systolic 160-180's. IV labetalol given x1, IV metoprolol x3, waiting on pharmacy for PO labetalol now. Trace generalized edema. SBA to BSC and bathroom. Continent of clear, dark yellow urine and soft brown stool with lawrence blood and clots. Advancing diet as tolerated, AC and HS BS checks. 95-97% on room air. Denies pain. NS DC'd, SL in L wrist patent, no s/s infiltration/phlebitis. 2 units FFP administered this shift without complications.
--- NOTE | 2017-05-10 18:27 | PCM.CONPHA ---
Subjective Date of Service: May 10, 2017 Bright red blood per rectum Reason for Pharmacy Consult: Anticoagulation Management Objective Vital Signs Date Time Temp Pulse Resp B/P Pulse Ox O2 Delivery O2 Flow Rate FiO2 05/10/17 16:57 36.6 97 16 188/104 97 Room Air 05/10/17 16:13 Nasal Cannula 05/10/17 16:10 95 18 162/82 96 Room Air 05/10/17 16:00 93 16 153/76 96 Room Air 05/10/17 15:01 36.4 103 22 189/90 98 Room Air 05/10/17 13:00 36.6 102 16 187/103 94 Room Air 05/10/17 12:58 36.6 102 16 187/103 05/10/17 12:45 36.7 100 16 186/112 05/10/17 12:19 36.0 100 14 183/100 05/10/17 11:58 36.7 104 14 184/105 05/10/17 11:50 36.7 104 14 184/105 05/10/17 10:07 36.4 102 14 170/88 05/10/17 09:48 36.4 103 14 183/82 05/10/17 08:43 37.3 117 16 177/72 94 Room Air 05/10/17 08:30 120 05/10/17 04:38 37.1 106 16 174/84 05/10/17 04:06 37.0 105 16 188/95 05/10/17 03:33 37.0 98 16 180/89 05/10/17 03:07 36.8 98 18 168/88 94 Room Air 05/10/17 03:06 36.8 94 16 168/88 05/10/17 02:40 102 18 165/88 05/10/17 02:22 36.7 102 18 171/90 05/10/17 01:55 106 05/10/17 01:44 36.7 105 16 172/89 05/10/17 01:26 36.7 102 16 174/88 05/10/17 01:10 36.9 105 20 200/98 95 Room Air 05/10/17 00:58 36.8 107 22 189/79 94 Room Air 05/10/17 00:57 107 189/79 05/10/17 00:32 108 22 183/76 94 Room Air 05/10/17 00:04 188/64 05/09/17 23:50 123 24 95 Room Air 05/09/17 22:00 118 23 187/72 98 Room Air 05/09/17 20:05 36.8 108 16 210/97 99 Room Air Intake and Output 05/08/17 05/09/17 05/10/17 00:00 00:00 00:00 Intake Total 999 ml Balance 999 ml Weight (Kilograms): 202.900 Height (Feet): 5 Height (Inches): 10.00 Test 05/09/17 20:49 05/10/17 01:09 05/10/17 05:10 05/10/17 17:29 Total Bilirubin 0.3mg/dL (0.0-1.2) Aspartate Amino Transf (AST/SGOT) 15U/L (0-50) Alanine Aminotransferase (ALT/SGPT) 14U/L (0-44) Alkaline Phosphatase 154U/L (25-150) Total Protein 8.1g/dL (6.4-8.4) Albumin 3.2g/dL (3.4-5.0) Hold Gaona Top Tube Received (Received) Hold Urine Received (Received) White Blood Count 9.7th/mm3 (3.8-10.1) Red Blood Count 3.50mil/mm3 (4.40-5.80) Hemoglobin 9.6g/dL (13.8-17.2) Hematocrit 31.0% (41.0-50.0) Mean Corpuscular Volume 88.6fL (81-100) Mean Corpuscular Hemoglobin 27.4pg (27.0-35.0) Mean Corpuscular Hemoglobin Concent 31.0% (32.0-37.0) Red Cell Distribution Width 14.7% (12.3-15.4) Platelet Count 259bil/L (150-400) Neutrophils (%) (Auto) 76.2% (40-74) Lymphocytes (%) (Auto) 14.1% (14-46) Monocytes (%) (Auto) 6.6% (4-12) Eosinophils (%) (Auto) 2.5% (0-5) Basophils (%) (Auto) 0.3% (0-3) Sodium Level 135mEq/L (134-144) Potassium Level 4.5mEq/L (3.5-5.2) Chloride Level 99mEq/L (97-108) Carbon Dioxide Level 23mmol/L (18-29) Blood Urea Nitrogen 36mg/dL (6-24) Creatinine 1.46mg/dL (0.76-1.27) Estimat Glomerular Filtration Rate 55mL/min (>59) Glucose Level 181mg/dL (60-99) Calcium Level 8.9mg/dL (8.5-10.1) Prothrombin Time 13.1sec (8.1-12.5) Prothromb Time International Ratio 1.22ratio Assessment/Plan Assessment/Plan WARFARIN MANAGEMENT A\ 46YO M with history of [facility] aortic valve admitted for GI bleed. Past medical history includes CHF, Diabetes, CKD and morbid obesity Went to endoscopy today hemorrhoid most likely reason for bleeding and was treated. Pt received FFP and Vit K 10mg IV x1 Current INR =1.22 HCT=31 Lkr=175 started heparin 5000units subq q8h Home dose Warfarin 10mg Tue, 7.5mg Mo,We,Th,Fr,Sa,Spears Pt has not had warfarin today and would like to restart Warfarin. p\Will continue Warfarin 10mg POx1 tonight and check daily INRs Ren Holt [facility] May 10, 2017 18:26
[2017-05-10] MEDS ORDERED: INSULIN DETEMIR 80 UNIT SQ SCH (21:00)
[2017-05-10] MEDS: Heparin 5,000 Unit/mL Inj SUBQ SCH (23:42)
[2017-05-11] VITALS (9 sets, daily range): BP systolic 159–187; BP diastolic 81–97; PULSE 84–104; RESP 14–22; O2SAT 96–97
[2017-05-11] MEDS: Insulin Human REGular 300 Unit/3 mL Inj SUBQ SCH ×3 (02:46→14:09)
[2017-05-11 02:52] LABS: BASOPHILS % (AUTO) 0.6 % (0-3); EOSINOPHILS % (AUTO) 3.1 % (0-5); MONOCYTES % (AUTO) 8.4 % (4-12); Mean Corpuscular Hemoglobin 27.8 pg (27.0-35.0); Mean Corpuscular Volume 88.9 fL (81-100); NEUTROPHILS % (AUTO) 74.1 % (40-74); Platelet Count 211 bil/L (150-400)
[2017-05-11 03:07] LABS: INR 1.13 ratio
[2017-05-11 03:33] LABS: Magnesium 1.7 mg/dL (1.6-2.6); Phosphorus 3.8 mg/dL (2.5-4.9)
--- NOTE | 2017-05-11 05:31 | NUR ---
GI: pt denies n/v, no BM post colonoscopy- no s/s of bleeding. H/H stable this am. pt sleeping overnight. care ongoing.
[2017-05-11] MEDS: 0.9% Sodium Chloride 250 ML IV SCH (08:15)
[2017-05-11] MEDS: Insulin GLARgine 100 Unit/mL Syringe SUBQ SCH ×2 (08:21→21:02)
[2017-05-11] MEDS: Lisinopril 40 Tablet PO SCH (08:21)
[2017-05-11] MEDS: Heparin 5,000 Unit/mL Inj SUBQ SCH ×2 (08:23→16:47)
--- NOTE | 2017-05-11 14:47 | PCM.PNMED ---
Subjective Date of Service May 11, 2017 Subjective Patient remains quite pleasant, states that his blood per rectum has resolved. Has no other focal complaints. No significant overnight events Comprehensive ROS negative except as listed above. Exam Vital Signs Vital Sign - Last Date Time Temp Pulse Resp B/P Pulse Ox O2 Delivery O2 Flow Rate FiO2 05/11/17 13:10 37.0 90 20 176/88 96 05/11/17 09:11 Room Air Intake and Output 05/10/17 05/10/17 05/11/17 Cumulative From/Thru 15:00 23:00 07:00 05/09/17 20:05 - 05/11/17 06:31 Intake Total 661 ml 3300 ml 936 ml 6146 ml Output Total 3275 ml 2 ml 3677 ml Balance 661 ml 25 ml 934 ml 2469 ml Intake Oral 3000 ml 936 ml 3936 ml IV Total 225 ml 300 ml 1574 ml Packed Cells 200 ml FFP 436 ml 436 ml Output Urine Total 1825 ml 2 ml 2227 ml Stool Total 1450 ml 1450 ml # Voids 1 Exam Gen: A/O x3 pleasant cooperative super morbidly obese gentleman in NAD Neck: Large circumference neck, no JVD, no thyromegaly HEENT: PERRL, EOMI, no scleral icterus, no conjunctival pallor, gums not bleeding CV: RRR, audible click from mechanical valve, no rubs or gallops Resp: Distant breath sounds secondary to habitus, no discernible wheezing rales or rhonchi Abd: Large protuberant obese abdomen, cannot discern BS, soft, non tender Extr: chronic venous stasis changes in BL LE, calves taught and non tender, mild LE edema BL Neuro: CN 2-12 grossly intact, no focal neurologic deficit Psych: Pleasant and appropriate mood and affect. IVs and Medications Medications Reviewed: Medications were reviewed in detail Lab and Diagnostics Item Value Date Time Red Blood Count 3.34 mil/mm3 L 05/11/17 0243 Mean Corpuscular Volume 88.9 fL 05/11/17 0243 Mean Corpuscular Hemoglobin 27.8 pg 05/11/17 0243 Mean Corpuscular Hemoglobin Concent 31.3 % L 05/11/17 0243 Red Cell Distribution Width 14.9 % 05/11/17 0243 Neutrophils (%) (Auto) 74.1 % H 05/11/17 0243 Lymphocytes (%) (Auto) 13.4 % L 05/11/17242 Monocytes (%) (Auto) 8.4 % 05/11/17242 Eosinophils (%) (Auto) 3.1 % 05/11/17242 Basophils (%) (Auto) 0.6 % 05/11/17242 Estimat Glomerular Filtration Rate 58 mL/min 05/11/17242 Calcium Level 8.6 mg/dL 05/11/17242 Phosphorus Level 3.8 mg/dL 05/11/17242 Magnesium Level 1.7 mg/dL 05/11/17242 Total Bilirubin 0.2 mg/dL 05/11/17242 Aspartate Amino Transf (AST/SGOT) 22 U/L 05/11/17242 Alanine Aminotransferase (ALT/SGPT) 12 U/L 05/11/17242 Alkaline Phosphatase 132 U/L 05/11/17242 Total Protein 6.6 g/dL 05/11/17242 Albumin 3.0 g/dL L 05/11/17242 Result Diagram: 05/11/1724205/11/17242 Additional Diagnostics Colonoscopy PROCEDURE IN DETAIL: Prep adequate Withdrawal time[default value] After unremarkable rectal examination the Olympus video colonoscope was inserted patient's anal canal and was advanced to cecum. Landmarks were identified including the ileocecal valve and appendiceal orifice. Scope was withdrawn systematically. Visualized colonic mucosa showed healthy shiny mucosa with normal healthy-appearing vasculature. Terminal ileum was intubated. Advanced 10 cm. Normal structures of tiny ulcer mass erosion noted. Visualized colonic mucosa showed healthy shiny mucosa was normal healthy-appearing vasculature. In the rectum retroflexion was done which showed hemorrhoids. Anal canal was inspected carefully on the way out and hemorrhoids noted. One of the hemorrhoid appears to have a little defect. Impression Hemorrhoids - with small defect. Most likely cause of the bleeding. Recommendation Advanced diet Resume anticoagulation If rebleed, consider obtaining surgical consult for hemorrhoidectomy. <Electronically signed by Deion Mercedes MD> 05/10/17 [id number] . Assessment & Plan 46-year-old gentleman with super morbid obesity, hypertension, diabetes light is type II insulin using, mechanical valve anticoagulated at therapeutic INR presents with 1 day of bright red blood per rectum, nonpainful, tachycardic and hypertensive. Patient underwent colonoscopy with Dr. Mercedes, who observed a large resolved internal hemorrhoid. Patient was re-initiated on anti-coagulation on . Acute lower gastrointestinal hemorrhage, present on admission, Resolved -INR 2.4, tachycardic, hemoglobin 11.4 upon presentation -Administer FFP 4 unit, 10 mg vitamin K IV upon arrival (05/09/17) -tracking H&H -Cross match and hold 2 units PRBC -Transfusion threshold hemoglobin of 8 or if symptomatic -Dr. Mercedes consulted, colonoscopy with full results as above, internal hemorrhoids-recommends resumption of anticoagulation -Will continue to observe for recurrence of GI bleed with re-initiation of anticoagulation -Patient educated on behavioral modification to avoid future hemorrhoids Acute Hypertensive urgency, present on admission, Improving -No headaches, no chest pain, no shortness of breath claims to have taken his medications -Metoprolol IV push 5 mg every 5 minutes for total of 3 for blood pressure greater than 170, and tachycardia Q12 -Continue home blood pressure medications:Amlodipine 10 mg by mouth nightly, lisinopril 40 mg every morning by mouth, metoprolol 100 mg by mouth twice a day Super morbid obesity, POA, chronic. Active -Multiple person assist for any lift or transfer -Bariatric bed and transfer device -Nutritional counseling on DC Artificial Aortic Valve, POA, chronic. Active -Due to congenital Bicuspid aortic valve -Goal INR 2-3 -Will resume anti-coagulation with aggressive up titration of INR -DC complicated by inability to use Lovenox bridge secondary to habitus -IV heparin started today Tachycardia, chronicity unknown known, POA, Improving -Patient has remained tachycardic -Patient states that he has had a fast heart rate like this for a little over a month since his last doctor's visit. -EKG as above -Placed patient on telemetry -Beta blockade as above Chronic diabetes mellitus type II insulin using, POA, active -Hemoglobin A1c as of : 9.3%, blood glucose today 172 -Medium-dose correctional insulin -Continue home detemir dosage -Diabetes education Chronic kidney disease stage III, POA, stable -Creatinine 1.68, BUN 40, review of outpatient labs for over a year shows BUN chronically elevated, 39 as of 04/07/2017. Creatinine chronically elevated 1.42 as of the same date. -Creatinine mildly elevated compared to 1 month ago, IV fluids 100 mL per hour, normal saline -Reassess with morning chemistries -If continues to worsen consider nephrology consultation Disposition: Patient will likely be able to DC home once INR has established a brisk upward trend, likely 1-2 days. Pain Evaluation: Adequate Pain Control GI Prophylaxis: Not indicated VTE Prophylaxis: Sub-Q Heparin (Unfractionated) Resuscitation Status: CPR: Attempt Resuscitation Attending Statement The patient was seen and examined together with Dr. Ontiveros on 05/11/17 and I have added additional information to the note above. Beni Ontiveros DO May 11, 2017 14:47 Pia Delong DO May 12, 2017 07:36
[2017-05-11] MEDS: Insulin LISPRO High-Dose Scale SUBQ SCH ×2 (16:48→21:02)
[2017-05-11] MEDS ORDERED: Insulin Human REGular 300 Unit/3 mL Inj SUBQ SCH (17:00)
--- NOTE | 2017-05-11 17:48 | NUR ---
No BM this shift, pt denies lawrence blood. BP elevated this shift, MD aware. Blood sugars elevated this afternoon, new orders per MD for AC/HS sliding scale.
--- NOTE | 2017-05-11 19:37 | PCM.PNMED ---
Subjective Date of Service May 11, 2017 Subjective No more blood in the stools. Tolerating diet. Exam Vital Signs Vital Sign - Last Date Time Temp Pulse Resp B/P Pulse Ox O2 Delivery O2 Flow Rate FiO2 05/11/17 17:59 89 159/81 05/11/17 16:48 36.8 20 96 Room Air Intake and Output 05/10/17 05/10/17 05/11/17 Cumulative From/Thru 15:00 23:00 07:00 05/09/17 20:05 - 05/11/17 06:31 Intake Total 661 ml 3300 ml 936 ml 6146 ml Output Total 3275 ml 2 ml 3677 ml Balance 661 ml 25 ml 934 ml 2469 ml Intake Oral 3000 ml 936 ml 3936 ml IV Total 225 ml 300 ml 1574 ml Packed Cells 200 ml FFP 436 ml 436 ml Output Urine Total 1825 ml 2 ml 2227 ml Stool Total 1450 ml 1450 ml # Voids 1 Exam Alert oriented comfortable. Head and neck no icterus Lungs clear Cardiovascular regular rate and rhythm normal S1-S2 Abdomen soft nontender nondistended obese normoactive bowel sounds Skin shows no jaundice Lab and Diagnostics Result Diagram: 05/11/17 0243 05/11/17 0243 Additional Diagnostics Colonoscopy PROCEDURE IN DETAIL: Prep adequate Withdrawal time[default value] After unremarkable rectal examination the Olympus video colonoscope was inserted patient's anal canal and was advanced to cecum. Landmarks were identified including the ileocecal valve and appendiceal orifice. Scope was withdrawn systematically. Visualized colonic mucosa showed healthy shiny mucosa with normal healthy-appearing vasculature. Terminal ileum was intubated. Advanced 10 cm. Normal structures of tiny ulcer mass erosion noted. Visualized colonic mucosa showed healthy shiny mucosa was normal healthy-appearing vasculature. In the rectum retroflexion was done which showed hemorrhoids. Anal canal was inspected carefully on the way out and hemorrhoids noted. One of the hemorrhoid appears to have a little defect. Impression Hemorrhoids - with small defect. Most likely cause of the bleeding. Recommendation Advanced diet Resume anticoagulation If rebleed, consider obtaining surgical consult for hemorrhoidectomy. <Electronically signed by Deion Mercedes MD> 05/10/17 [id number] . Assessment & Plan 46-year-old gentleman with super morbid obesity, hypertension, diabetes light is type II insulin using, mechanical valve anticoagulated at therapeutic INR presents with 1 day of bright red blood per rectum, nonpainful, tachycardic and hypertensive. Patient was actively bleeding. Patient was oozing blood. Patient underwent colonoscopy with Dr. Mercedes, who observed a large internal hemorrhoid. One of the hemorrhoids had a little defect and with good clot. Patient was re-initiated on anti-coagulation on 05/10/17. As long as there is no evidence of bleeding, continue aggressive anticoagulation. However, while anticoagulated, would strongly recommend making his stool very pasty for about a week or 2. If he gets constipated and starts excessively pushing the defect could get irritated and bleeding resume. GI Prophylaxis: Not indicated VTE Prophylaxis: Sub-Q Heparin (Unfractionated) Resuscitation Status: CPR: Attempt Resuscitation Deion Mercedes MD May 11, 2017 19:37
[2017-05-11] MEDS: Heparin 25K Unit/500mL 0.45 NS 25,000 UNIT in IV Premix 1 EACH IV SCH (20:10)
[2017-05-12] VITALS (9 sets, daily range): BP systolic 144–173; BP diastolic 78–87; PULSE 80–106; RESP 16–20; O2SAT 95–96
[2017-05-12] MEDS: Heparin 5,000 Unit/mL Inj IVPUSH PRN ×3 (01:41→21:18)
--- NOTE | 2017-05-12 05:49 | NUR ---
Heparin: Heparin gtt initiated overnight per MD order. Gtt titrated per protocol. no S/S of bleeding noted. Per pt, MD wants pts BMs to be "soft, and mushy x2 weeks. Pt denies any BM since colonscopy on 05/10. Senna given with HS meds
[2017-05-12 07:53] LABS: Mean Corpuscular Hemoglobin 27.3 pg (27.0-35.0); Mean Corpuscular Volume 89.9 fL (81-100)
[2017-05-12] MEDS: Insulin LISPRO High-Dose Scale SUBQ SCH ×4 (08:00→21:28)
[2017-05-12 08:06] LABS: INR 1.12 ratio
[2017-05-12 08:06] LABS: INR 1.13 ratio
[2017-05-12] MEDS: 0.9% Sodium Chloride 250 ML IV SCH (08:15)
[2017-05-12] MEDS: Insulin GLARgine 100 Unit/mL Syringe SUBQ SCH ×2 (08:23→21:22)
[2017-05-12] MEDS: Furosemide 10 mg/mL 4 mL Inj IVPUSH SCH (08:24)
[2017-05-12] MEDS: Lisinopril 40 Tablet PO SCH (08:24)
--- NOTE | 2017-05-12 10:21 | PCM.PNMED ---
Subjective Date of Service May 12, 2017 Subjective Patient remains quite pleasant, states that his blood per rectum has resolved. Denies constipation or straining with BMs at this time. States his only complaint at this time is boredom. No significant overnight events Comprehensive ROS negative except as listed above. Exam Vital Signs Vital Sign - Last Date Time Temp Pulse Resp B/P Pulse Ox O2 Delivery O2 Flow Rate FiO2 05/12/17 09:01 106 05/12/17 08:36 36.9 16 165/82 96 Room Air Intake and Output 05/11/17 05/11/17 05/12/17 Cumulative From/Thru 14:59 22:59 06:59 05/09/17 20:05 - 05/12/17 06:20 Intake Total 920 ml 980 ml 8046 ml Output Total 400 ml 4077 ml Balance 520 ml 980 ml 3969 ml Intake Oral 920 ml 800 ml 5656 ml IV Total 180 ml 1754 ml Packed Cells 200 ml FFP 436 ml Output Urine Total 400 ml 2627 ml Stool Total 1450 ml # Voids 2 3 Exam Gen: A/O x3 pleasant cooperative super morbidly obese gentleman in NAD Neck: Large circumference neck, no JVD, no thyromegaly HEENT: PERRL, EOMI, no scleral icterus, no conjunctival pallor, gums not bleeding CV: RRR, audible click from mechanical valve, no rubs or gallops Resp: Distant breath sounds secondary to habitus, no discernible wheezing rales or rhonchi Abd: Large protuberant obese abdomen, cannot discern BS, soft, non tender Extr: chronic venous stasis changes in BL LE, calves taught and non tender, mild LE edema BL Neuro: CN 2-12 grossly intact, no focal neurologic deficit Psych: Pleasant and appropriate mood and affect. IVs and Medications IV Fluids 500 ml NS delivered with IV meds Medications Reviewed: Medications were reviewed in detail Lab and Diagnostics Item Value Date Time Red Blood Count 3.55 mil/mm3 L 05/12/17729 Mean Corpuscular Volume 89.9 fL 05/12/17 0730 Mean Corpuscular Hemoglobin 27.3 pg 05/12/17 0730 Mean Corpuscular Hemoglobin Concent 30.4 % L 05/12/1730 Red Cell Distribution Width 14.9 % 05/12/17729 Estimat Glomerular Filtration Rate 58 mL/min 05/11/17 0243 Calcium Level 8.6 mg/dL 05/11/17 0243 Phosphorus Level 3.8 mg/dL 05/11/17 0243 Magnesium Level 1.7 mg/dL 05/11/17 0243 Total Bilirubin 0.2 mg/dL 05/11/17 0243 Aspartate Amino Transf (AST/SGOT) 22 U/L 05/11/17 0243 Alanine Aminotransferase (ALT/SGPT) 12 U/L 05/11/17 0243 Alkaline Phosphatase 132 U/L 05/11/17 0243 Total Protein 6.6 g/dL 05/11/17 0243 Albumin 3.0 g/dL L 05/11/17 0243 Result Diagram: 05/12/17 0730 05/11/17 0243 Additional Diagnostics Colonoscopy PROCEDURE IN DETAIL: Prep adequate Withdrawal time[default value] After unremarkable rectal examination the [employer] video colonoscope was inserted patient's anal canal and was advanced to cecum. Landmarks were identified including the ileocecal valve and appendiceal orifice. Scope was withdrawn systematically. Visualized colonic mucosa showed healthy shiny mucosa with normal healthy-appearing vasculature. Terminal ileum was intubated. Advanced 10 cm. Normal structures of tiny ulcer mass erosion noted. Visualized colonic mucosa showed healthy shiny mucosa was normal healthy-appearing vasculature. In the rectum retroflexion was done which showed hemorrhoids. Anal canal was inspected carefully on the way out and hemorrhoids noted. One of the hemorrhoid appears to have a little defect. Impression Hemorrhoids - with small defect. Most likely cause of the bleeding. Recommendation Advanced diet Resume anticoagulation If rebleed, consider obtaining surgical consult for hemorrhoidectomy. <Electronically signed by Deion Mercedes MD> 05/10/17 1620 . Assessment & Plan 46-year-old gentleman with super morbid obesity, hypertension, diabetes light is type II insulin using, mechanical valve anticoagulated at therapeutic INR presents with 1 day of bright red blood per rectum, nonpainful, tachycardic and hypertensive. Patient underwent colonoscopy with Dr. Mercedes on 05/10/17, was found to have internal hemorrhoids and no other gross pathology. The patient was re- initiated on anti-coagulation on 05/11/17, because of his BMI he cannot be bridged with Lovenox, and because of his artificial valve he is not a candidate for NOAC; thus we titrating him his INR up with Warfarin while maintaining him on a Heparin drip. Acute lower gastrointestinal hemorrhage, present on admission, active -INR 2.4, tachycardic, hemoglobin 11.4 upon presentation -Administer FFP 4 unit, 10 mg vitamin K IV upon arrival -tracking H&H -Cross match and hold 2 units PRBC -Transfusion threshold hemoglobin of 8 or if symptomatic -Dr. Mercedes consulted, performed colonoscopy on 05/10/17 which demonstrated internal hemorrhoids as the likely source of his bleeding Acute Hypertensive urgency, present on admission, improving -Upon presentations, No headaches, no chest pain, no shortness of breath claims to have taken his medications -Patient was initially managed with IV metoprolol for BP and tachycardia -Continue home blood pressure medications:Amlodipine 10 mg by mouth nightly, lisinopril 40 mg every morning by mouth, metoprolol 100 mg by mouth twice a day -Add lasix 40 mg for diuresis in addition to home regimen Super morbid obesity, POA, chronic. Active -Multiple person assist for any lift or transfer -Bariatric bed and transfer device -Nutritional counseling on DC Tachycardia, chronicity unknown known, POA, Improved -Patient has remains tachycardic -Patient states that he has had a fast heart rate like this for a little over a month since his last doctor's visit. -EKG as above -Placed patient on telemetry -Beta blockade as above Chronic diabetes mellitus type II insulin using, POA, active -Hemoglobin A1c as of : 9.3%, blood glucose today 172 -Medium-dose correctional insulin -Continue home detemir dosage -Diabetes education Chronic kidney disease stage III, POA, stable -Creatinine 1.68, BUN 40, review of outpatient labs for over a year shows BUN chronically elevated, 39 as of 04/07/2017. Creatinine chronically elevated 1.42 as of the same date. -Creatinine mildly elevated compared to 1 month ago, IV fluids 100 mL per hour, normal saline -Reassess with morning chemistries -Avoid Nephrotoxic medications when possible -If continues to worsen consider nephrology consultation Disposition: Patient is currently being titrated up on INR, this is greatly complicated by his artificial valve and obesity, anticipate DC home in 1-2 days dependent upon response to Warfarin therapy. Pain Evaluation: Adequate Pain Control GI Prophylaxis: Not indicated VTE Prophylaxis: Sub-Q Heparin (Unfractionated) Resuscitation Status: CPR: Attempt Resuscitation Attending Statement The patient was seen and examined together with Dr. Ontiveros on 05/12/17 and I agree with the history, exam and plan as outlined in the note above. Beni Ontiveros DO May 12, 2017 10:21 Pia Delong DO May 12, 2017 19:16
[2017-05-12] MEDS ORDERED: APIX5TAB PO (10:23)
--- NOTE | 2017-05-12 10:29 | NUR ---
Social Work: Readiness for d/c Data: Pt is on day 3 of hospitalization. EMR reviewed, pt discussed in rounds. MD states pt likely to d/c in 1-2 days once INR is therapeutic. MD requested MANAGER OF FINANCIAL see cost to pt. MANAGER OF FINANCIAL called pt's preferred pharmacy, [facility] in [place] for Eliquis, cost to pt is $55 after it goes through insurance. No further d/c planning needs anticipated at this time. MANAGER OF FINANCIAL will continue to follow if needs arise. Assessment: Pt who is independent at baseline. Plan: Pt will d/c home via POV wtih when medically stable, likely in 1-2 days per MD. Cost to pt for Eliquis prescription is $55. No further d/c planning needs anticipated at this time. MANAGER OF FINANCIAL will continue to follow if needs arise. YESENIA Quevedo
[2017-05-12] MEDS: Heparin 25K Unit/500mL 0.45 NS 25,000 UNIT in IV Premix 1 EACH IV SCH (21:17)
[2017-05-13] VITALS (8 sets, daily range): BP systolic 134–185; BP diastolic 78–94; PULSE 78–96; RESP 15–20; O2SAT 95–99
[2017-05-13 01:50] LABS: BASOPHILS % (AUTO) 0.3 % (0-3); EOSINOPHILS % (AUTO) 3.7 % (0-5); Mean Corpuscular Volume 90.4 fL (81-100); NEUTROPHILS % (AUTO) 72.1 % (40-74); Platelet Count 244 bil/L (150-400)
[2017-05-13 02:21] LABS: INR 1.16 ratio
[2017-05-13 02:50] LABS: Magnesium 1.8 mg/dL (1.6-2.6); Phosphorus 3.8 mg/dL (2.5-4.9)
[2017-05-13] MEDS: Heparin 5,000 Unit/mL Inj IVPUSH PRN ×2 (04:16→21:14)
--- NOTE | 2017-05-13 04:19 | NUR ---
Heparin Pt continues with Heparin gtt to bridge with warfarin until INR is therapeutic. No s/sx of bleeding noted. Pt declines pain, SOB or CP. VSS and Tele SR/T 90's to 100's.
[2017-05-13] MEDS: Insulin LISPRO High-Dose Scale SUBQ SCH ×4 (08:00→21:12)
[2017-05-13 08:05] LABS: BASOPHILS % (AUTO) 0.5 % (0-3); EOSINOPHILS % (AUTO) 3.4 % (0-5); MONOCYTES % (AUTO) 6.7 % (4-12); Mean Corpuscular Hemoglobin 27.6 pg (27.0-35.0); Mean Corpuscular Volume 89.8 fL (81-100); NEUTROPHILS % (AUTO) 74.2 % (40-74); Platelet Count 232 bil/L (150-400)
[2017-05-13] MEDS: 0.9% Sodium Chloride 250 ML IV SCH (08:15)
[2017-05-13] MEDS: Polyethylene Glycol (PEG) 17 Gm Powder PO SCH (08:29)
[2017-05-13] MEDS: Furosemide 10 mg/mL 4 mL Inj IVPUSH SCH (08:30)
[2017-05-13 08:36] LABS: INR 1.22 ratio
[2017-05-13] MEDS: Insulin GLARgine 100 Unit/mL Syringe SUBQ SCH ×2 (08:37→21:11)
[2017-05-13] MEDS: Heparin 25K Unit/500mL 0.45 NS 25,000 UNIT in IV Premix 1 EACH IV SCH (16:46)
--- NOTE | 2017-05-13 17:16 | PCM.PNMED ---
Subjective Date of Service May 13, 2017 Subjective Patient had an uneventful BM without blood. Continues to complain only of boredom and frustration. Remains very pleasant and cooperative No significant overnight events Comprehensive ROS negative except as listed above. Exam Vital Signs Vital Sign - Last Date Time Temp Pulse Resp B/P Pulse Ox O2 Delivery O2 Flow Rate FiO2 05/13/17 16:49 37.2 84 20 150/82 97 Room Air Intake and Output 05/12/17 05/12/17 05/13/17 Cumulative From/Thru 15:00 23:00 07:00 05/09/17 20:05 - 05/13/17 06:59 Intake Total 1140 ml 1055 ml 72250 ml Output Total 4077 ml Balance 1140 ml 1055 ml 6164 ml Intake Oral 1140 ml 500 ml 7296 ml IV Total 555 ml 2309 ml Packed Cells 200 ml FFP 436 ml Output Urine Total 2627 ml Stool Total 1450 ml # Voids 5 2 10 # Bowel Movements 1 1 Exam Gen: A/O x3 pleasant cooperative super morbidly obese gentleman in NAD Neck: Large circumference neck, no JVD, no thyromegaly HEENT: PERRL, EOMI, no scleral icterus, no conjunctival pallor, gums not bleeding CV: RRR, audible click from mechanical valve, no rubs or gallops Resp: Distant breath sounds secondary to habitus, no discernible wheezing rales or rhonchi Abd: Large protuberant obese abdomen, cannot discern BS, soft, non tender Extr: chronic venous stasis changes in BL LE, calves taught and non tender, mild LE edema BL Neuro: CN 2-12 grossly intact, no focal neurologic deficit Psych: Pleasant and appropriate mood and affect. IVs and Medications IV Fluids 500 ml NS delivered with IV meds Medications Reviewed: Medications were reviewed in detail Lab and Diagnostics Item Value Date Time Red Blood Count 3.62 mil/mm3 L 05/13/17 0750 Mean Corpuscular Volume 89.8 fL 05/13/17 0750 Mean Corpuscular Hemoglobin 27.6 pg 05/13/17 0750 Mean Corpuscular Hemoglobin Concent 30.8 % L 05/13/17 0750 Red Cell Distribution Width 14.7 % 05/13/17 0750 Neutrophils (%) (Auto) 74.2 % H 05/13/17 0750 Lymphocytes (%) (Auto) 14.8 % 05/13/17 0750 Monocytes (%) (Auto) 6.7 % 05/13/17 0750 Eosinophils (%) (Auto) 3.4 % 05/13/17 0750 Basophils (%) (Auto) 0.5 % 05/13/17 075 Estimat Glomerular Filtration Rate 55 mL/min 05/13/17 075 Calcium Level 8.8 mg/dL 05/13/17 075 Total Bilirubin 0.3 mg/dL 05/13/17 075 Aspartate Amino Transf (AST/SGOT) 19 U/L 05/13/17 0750 Alanine Aminotransferase (ALT/SGPT) 13 U/L 05/13/17 0750 Alkaline Phosphatase 150 U/L 05/13/17 0750 Total Protein 6.7 g/dL 05/13/17 0750 Albumin 3.1 g/dL L 05/13/17 075 Activated Partial Thromboplast Time 46.0 sec H 05/13/17 1322 Result Diagram: 05/13/17 0750 05/13/17 075 Additional Diagnostics Colonoscopy PROCEDURE IN DETAIL: Prep adequate Withdrawal time[default value] After unremarkable rectal examination the Olympus video colonoscope was inserted patient's anal canal and was advanced to cecum. Landmarks were identified including the ileocecal valve and appendiceal orifice. Scope was withdrawn systematically. Visualized colonic mucosa showed healthy shiny mucosa with normal healthy-appearing vasculature. Terminal ileum was intubated. Advanced 10 cm. Normal structures of tiny ulcer mass erosion noted. Visualized colonic mucosa showed healthy shiny mucosa was normal healthy-appearing vasculature. In the rectum retroflexion was done which showed hemorrhoids. Anal canal was inspected carefully on the way out and hemorrhoids noted. One of the hemorrhoid appears to have a little defect. Impression Hemorrhoids - with small defect. Most likely cause of the bleeding. Recommendation Advanced diet Resume anticoagulation If rebleed, consider obtaining surgical consult for hemorrhoidectomy. <Electronically signed by Deion Mercedes MD> 05/10/17 3196 . Assessment & Plan 46-year-old gentleman with super morbid obesity, hypertension, diabetes light is type II insulin using, mechanical valve anticoagulated at therapeutic INR presents with 1 day of bright red blood per rectum, nonpainful, tachycardic and hypertensive. Patient underwent colonoscopy with Dr. Mercedes on 05/10/17, was found to have internal hemorrhoids and no other gross pathology. The patient was re- initiated on anti-coagulation on 05/11/17, because of his BMI he cannot be bridged with Lovenox, and because of his artificial valve he is not a candidate for NOAC; thus we titrating him his INR up with Warfarin while maintaining him on a Heparin drip. Acute lower gastrointestinal hemorrhage, present on admission, active -INR 2.4, tachycardic, hemoglobin 11.4 upon presentation -Administer FFP 4 unit, 10 mg vitamin K IV upon arrival -tracking H&H -Cross match and hold 2 units PRBC -Transfusion threshold hemoglobin of 8 or if symptomatic -Dr. Mercedes consulted, performed colonoscopy on 05/10/17 which demonstrated internal hemorrhoids as the likely source of his bleeding Acute Hypertensive urgency, present on admission, improving -Upon presentations, No headaches, no chest pain, no shortness of breath claims to have taken his medications -Patient was initially managed with IV metoprolol for BP and tachycardia -Continue home blood pressure medications:Amlodipine 10 mg by mouth nightly, lisinopril 40 mg every morning by mouth, metoprolol 100 mg by mouth twice a day -Add lasix 40 mg for diuresis in addition to home regimen Super morbid obesity, POA, chronic. Active -Multiple person assist for any lift or transfer -Bariatric bed and transfer device -Nutritional counseling on DC Tachycardia, chronicity unknown known, POA, Improved -Patient has remains tachycardic -Patient states that he has had a fast heart rate like this for a little over a month since his last doctor's visit. -EKG as above -Placed patient on telemetry -Beta blockade as above Chronic diabetes mellitus type II insulin using, POA, active -Hemoglobin A1c as of : 9.3%, blood glucose today 172 -Medium-dose correctional insulin -Continue home detemir dosage -Diabetes education Chronic kidney disease stage III, POA, stable -Creatinine 1.68, BUN 40, review of outpatient labs for over a year shows BUN chronically elevated, 39 as of 04/07/2017. Creatinine chronically elevated 1.42 as of the same date. -Creatinine mildly elevated compared to 1 month ago, IV fluids 100 mL per hour, normal saline -Reassess with morning chemistries -Avoid Nephrotoxic medications when possible -If continues to worsen consider nephrology consultation Disposition: Patient is currently being titrated up on INR, this is greatly complicated by his artificial valve and obesity, anticipate DC home in 1-2 days dependent upon response to Warfarin therapy. Pain Evaluation: Adequate Pain Control GI Prophylaxis: Not indicated VTE Prophylaxis: Sub-Q Heparin (Unfractionated) Resuscitation Status: CPR: Attempt Resuscitation Attending Statement The patient was seen and examined together with Dr. Ontiveros on 05/13/2017 and I agree with the history, exam and plan as outlined in the note above. Beni Ontiveros DO May 13, 2017 17:16 Bravo Villegas MD May 13, 2017 17:57
--- NOTE | 2017-05-13 18:45 | NUR ---
Heparin gtt/activity Pt continues on heparin per protocol, guaiac stool sent to lab. Pt up with steady gait independently in room. TELE SR 80s.
[2017-05-14] VITALS (8 sets, daily range): BP systolic 135–180; BP diastolic 72–97; PULSE 82–91; RESP 20; O2SAT 95–97
[2017-05-14 02:17] LABS: Mean Corpuscular Hemoglobin 27.4 pg (27.0-35.0)
[2017-05-14 02:57] LABS: Magnesium 1.9 mg/dL (1.6-2.6); Phosphorus 3.9 mg/dL (2.5-4.9)
[2017-05-14] MEDS: Heparin 5,000 Unit/mL Inj IVPUSH PRN (03:07)
[2017-05-14 03:08] LABS: INR 1.3 ratio
--- NOTE | 2017-05-14 05:35 | NUR ---
Heparin Pt continues on heparin cardiac protocol @ 1450 u/hr. AM INR 1.30. Pt is independent in room and at bedside to help with care. VSS and Tele SR.
[2017-05-14] MEDS: Insulin LISPRO High-Dose Scale SUBQ SCH ×4 (08:00→21:33)
[2017-05-14] MEDS: 0.9% Sodium Chloride 250 ML IV SCH (08:15)
--- NOTE | 2017-05-14 08:39 | PCM.PHAPRO ---
Progress Date of Service: May 14, 2017 Warfarin dosing INR=1.30, hct=31.4, byza=125 Pt continues on warfarin/heparin gtt for bridging for mechanical aortic valve. INR goal = 2-3. INR still subtherapeutic, will give a dose of warfarin 10 mg tonight. INRs ordered. Pharmacy will continue to follow pt's warfarin therapy. Date May 11May 12May 13May 14 INR 1.22 1.13 1.12 1.16 1.30 INR change -0.09 -0.01 0.04 0.14 Warf Dose 10 10 10 X1 7.5MG/D 10 mg Kayce Wagner PharmD May 14, 2017 08:39
[2017-05-14] MEDS: Furosemide 10 mg/mL 4 mL Inj IVPUSH SCH (09:07)
[2017-05-14] MEDS: Polyethylene Glycol (PEG) 17 Gm Powder PO SCH (09:08)
[2017-05-14] MEDS: Insulin GLARgine 100 Unit/mL Syringe SUBQ SCH ×2 (09:10→21:32)
[2017-05-14] MEDS: Heparin 25K Unit/500mL 0.45 NS 25,000 UNIT in IV Premix 1 EACH IV SCH (11:06)
--- NOTE | 2017-05-14 13:08 | PCM.PNMED ---
Subjective Date of Service May 14, 2017 Subjective Continues to complain only of boredom and frustration. Remains very pleasant and cooperative No significant overnight events Comprehensive ROS negative except as listed above. Exam Vital Signs Vital Sign - Last Date Time Temp Pulse Resp B/P Pulse Ox O2 Delivery O2 Flow Rate FiO2 05/14/17 12:26 36.5 84 20 179/97 96 Room Air Intake and Output 05/13/17 05/13/17 05/14/17 Cumulative From/Thru 15:00 23:00 07:00 05/09/17 20:05 - 05/14/17 06:20 Intake Total 1365 ml 1315 ml 75031 ml Output Total 1 ml 4078 ml Balance -1 ml 1365 ml 1315 ml 8843 ml Intake Oral 1040 ml 1000 ml 9336 ml IV Total 325 ml 315 ml 2949 ml Packed Cells 200 ml FFP 436 ml Output Urine Total 2627 ml Stool Total 1450 ml Emesis 1 ml 1 ml # Voids 3 2 15 # Bowel Movements 1 2 Exam Gen: A/O x3 pleasant cooperative super morbidly obese gentleman in NAD Neck: Large circumference neck, no JVD, no thyromegaly HEENT: PERRL, EOMI, no scleral icterus, no conjunctival pallor, gums not bleeding CV: RRR, audible click from mechanical valve, no rubs or gallops Resp: Distant breath sounds secondary to habitus, no discernible wheezing rales or rhonchi Abd: Large protuberant obese abdomen, cannot discern BS, soft, non tender Extr: chronic venous stasis changes in BL LE, calves taught and non tender, mild LE edema BL Neuro: CN 2-12 grossly intact, no focal neurologic deficit Psych: Pleasant and appropriate mood and affect. IVs and Medications IV Fluids 500 ml NS delivered with IV medications Medications Reviewed: Medications were reviewed in detail Lab and Diagnostics Item Value Date Time Red Blood Count 3.61 mil/mm3 L 05/14/17 0210 Mean Corpuscular Volume 87.0 fL 05/14/17 0210 Mean Corpuscular Hemoglobin 27.4 pg 05/14/17 0210 Mean Corpuscular Hemoglobin Concent 31.5 % L 05/14/17 0210 Red Cell Distribution Width 14.7 % 05/14/17 0210 Estimat Glomerular Filtration Rate 45 mL/min 05/14/17 0210 Calcium Level 9.0 mg/dL 05/14/17 021 Phosphorus Level 3.9 mg/dL 05/14/17 021 Magnesium Level 1.9 mg/dL 05/14/17 021 Result Diagram: 05/14/1720905/14/17209 Additional Diagnostics Colonoscopy PROCEDURE IN DETAIL: Prep adequate Withdrawal time[default value] After unremarkable rectal examination the Olympus video colonoscope was inserted patient's anal canal and was advanced to cecum. Landmarks were identified including the ileocecal valve and appendiceal orifice. Scope was withdrawn systematically. Visualized colonic mucosa showed healthy shiny mucosa with normal healthy-appearing vasculature. Terminal ileum was intubated. Advanced 10 cm. Normal structures of tiny ulcer mass erosion noted. Visualized colonic mucosa showed healthy shiny mucosa was normal healthy-appearing vasculature. In the rectum retroflexion was done which showed hemorrhoids. Anal canal was inspected carefully on the way out and hemorrhoids noted. One of the hemorrhoid appears to have a little defect. Impression Hemorrhoids - with small defect. Most likely cause of the bleeding. Recommendation Advanced diet Resume anticoagulation If rebleed, consider obtaining surgical consult for hemorrhoidectomy. <Electronically signed by Deion Mercedes MD> 05/10/17 1620 . Assessment & Plan 46-year-old gentleman with super morbid obesity, hypertension, diabetes light is type II insulin using, mechanical valve anticoagulated at therapeutic INR presents with 1 day of bright red blood per rectum, nonpainful, tachycardic and hypertensive. Patient underwent colonoscopy with Dr. Mercedes on 05/10/17, was found to have internal hemorrhoids and no other gross pathology. The patient was re- initiated on anti-coagulation on 05/11/17, because of his BMI he cannot be bridged with Lovenox, and because of his artificial valve he is not a candidate for NOAC; thus we titrating him his INR up with Warfarin while maintaining him on a Heparin drip. Acute lower gastrointestinal hemorrhage, present on admission, active -INR 2.4, tachycardic, hemoglobin 11.4 upon presentation -Administer FFP 4 unit, 10 mg vitamin K IV upon arrival -tracking H&H -Cross match and hold 2 units PRBC -Transfusion threshold hemoglobin of 8 or if symptomatic -Dr. Mercedes consulted, performed colonoscopy on 05/10/17 which demonstrated internal hemorrhoids as the likely source of his bleeding Acute Hypertensive urgency, present on admission, improving -Upon presentations, No headaches, no chest pain, no shortness of breath claims to have taken his medications -Patient was initially managed with IV metoprolol for BP and tachycardia -Continue home blood pressure medications:Amlodipine 10 mg by mouth nightly, lisinopril 40 mg every morning by mouth, metoprolol 100 mg by mouth twice a day -Add lasix 40 mg for diuresis in addition to home regimen Super morbid obesity, POA, chronic. Active -Multiple person assist for any lift or transfer -Bariatric bed and transfer device -Nutritional counseling on DC Tachycardia, chronicity unknown known, POA, Improved -Patient has remains tachycardic -Patient states that he has had a fast heart rate like this for a little over a month since his last doctor's visit. -EKG as above -Placed patient on telemetry -Beta blockade as above Chronic diabetes mellitus type II insulin using, POA, active -Hemoglobin A1c as of : 9.3%, blood glucose today 172 -Medium-dose correctional insulin -Continue home detemir dosage -Diabetes education Chronic kidney disease stage III, POA, stable -Creatinine 1.68, BUN 40, review of outpatient labs for over a year shows BUN chronically elevated, 39 as of 04/07/2017. Creatinine chronically elevated 1.42 as of the same date. -Creatinine mildly elevated compared to 1 month ago, IV fluids 100 mL per hour, normal saline -Reassess with morning chemistries -Avoid Nephrotoxic medications when possible -If continues to worsen consider nephrology consultation Disposition: Patient is currently being titrated up on INR, this is greatly complicated by his artificial valve and obesity, anticipate DC home in 1-2 days dependent upon response to Warfarin therapy. Pain Evaluation: Adequate Pain Control GI Prophylaxis: Not indicated VTE Prophylaxis: Sub-Q Heparin (Unfractionated) Resuscitation Status: CPR: Attempt Resuscitation Attending Statement The patient was seen and examined together with Dr. Ontiveros on 05/14/2017 and I agree with the history, exam and plan as outlined in the note above. . Beni Ontiveros DO May 14, 2017 13:08 Bravo Villegas MD May 15, 2017 19:34
--- NOTE | 2017-05-14 15:29 | NUR ---
Heparin/activity pt continues on Heparin infusion, with adjustments per protocol. labs monitored and reviewed. pt questions answered regarding status and medication management. pt up ambulating in halls multiple times with female visitor/family. pt with steady gait. denies pain, sob. will continue to monitor.
[2017-05-15] VITALS (10 sets, daily range): BP systolic 153–208; BP diastolic 70–105; PULSE 82–102; RESP 16–20; O2SAT 95–98
[2017-05-15] MEDS: Heparin 25K Unit/500mL 0.45 NS 25,000 UNIT in IV Premix 1 EACH IV SCH ×2 (04:03→19:44)
[2017-05-15 04:18] LABS: BASOPHILS % (AUTO) 0.6 % (0-3); EOSINOPHILS % (AUTO) 4.2 % (0-5); MONOCYTES % (AUTO) 6.9 % (4-12); Mean Corpuscular Hemoglobin 27.5 pg (27.0-35.0); Mean Corpuscular Volume 89.1 fL (81-100); NEUTROPHILS % (AUTO) 74.4 % (40-74); Platelet Count 265 bil/L (150-400)
[2017-05-15 04:35] LABS: INR 1.47 ratio
[2017-05-15 04:38] LABS: Phosphorus 4.1 mg/dL (2.5-4.9)
--- NOTE | 2017-05-15 05:22 | NUR ---
Heparin Pt continues on Heparin gtt cardiac protocol at 1550 u/hr. INR this AM is 1.47. Pt up ambulating in halls with helping. VSS and Tele SR.
[2017-05-15] MEDS: Insulin LISPRO High-Dose Scale SUBQ SCH ×4 (08:00→21:20)
[2017-05-15] MEDS: 0.9% Sodium Chloride 250 ML IV SCH (08:03)
[2017-05-15] MEDS: Furosemide 10 mg/mL 4 mL Inj IVPUSH SCH (08:09)
[2017-05-15] MEDS: Polyethylene Glycol (PEG) 17 Gm Powder PO SCH (08:09)
[2017-05-15] MEDS: Insulin GLARgine 100 Unit/mL Syringe SUBQ SCH ×2 (08:14→21:20)
--- NOTE | 2017-05-15 09:42 | PCM.PHAPRO ---
Progress Date of Service: May 15, 2017 Warfarin dosing INR = 1.47, hct = 33.4, bhba=818 Pt continues on hep gtt and warfarin for mechanical aortic valve. Goal INR = 2.5. INR today subtherapeutic. Will increase dose tonight to warfarin 12.5mg PO x 1 since today is day 6 of warfarin dosing and INR remains below 1.5. INRs are ordered. Pharmacy will follow. Date May 11May 12May 13May 14May 15 INR 1.22 1.13 1.12 1.16 1.30 1.47 INR change -0.09 -0.01 0.04 0.14 0.17 Warf Dose 10 10 10 X1 7.5MG/D 10 mg 12.5mg Kayce Wagner PharmD May 15, 2017 09:42
[2017-05-15] MEDS ORDERED: Labetalol 5 mg/mL 20 mL Inj IV STA (16:38)
--- NOTE | 2017-05-15 18:02 | PCM.PNMED ---
Subjective Date of Service May 15, 2017 Subjective Patient doing well overnight however he is getting anxious and depressed due to his extended-stay as his INR is slowly climbing. Denies all review of systems otherwise. Exam Vital Signs Vital Sign - Last Date Time Temp Pulse Resp B/P Pulse Ox O2 Delivery O2 Flow Rate FiO2 05/15/17 17:25 153/82 05/15/17 16:22 36.9 83 18 97 Room Air Intake and Output 05/14/17 05/14/17 05/15/17 Cumulative From/Thru 15:00 23:00 07:00 05/09/17 20:05 - 05/15/17 05:15 Intake Total 1555 ml 743 ml 90589 ml Output Total 4078 ml Balance 1555 ml 743 ml 54958 ml Intake Oral 1200 ml 400 ml 38681 ml IV Total 355 ml 343 ml 3647 ml Packed Cells 200 ml FFP 436 ml Output Urine Total 2627 ml Stool Total 1450 ml Emesis 1 ml # Voids 3 2 20 # Bowel Movements 1 0 3 Exam Gen: A/O x3 pleasant cooperative super morbidly obese gentleman in NAD Neck: Large circumference neck, no JVD, no thyromegaly HEENT: PERRL, EOMI, no scleral icterus, no conjunctival pallor, gums not bleeding CV: RRR, audible click from mechanical valve, no rubs or gallops Resp: Distant breath sounds secondary to habitus, no discernible wheezing rales or rhonchi Abd: Large protuberant obese abdomen, cannot discern BS, soft, non tender Extr: chronic venous stasis changes in BL LE, calves taught and non tender, mild LE edema BL Neuro: CN 2-12 grossly intact, no focal neurologic deficit Psych: Pleasant and appropriate mood and affect. IVs and Medications Medications Reviewed: Medications were reviewed in detail Lab and Diagnostics Result Diagram: 05/15/17 0400 05/15/17 0400 Additional Diagnostics Colonoscopy PROCEDURE IN DETAIL: Prep adequate Withdrawal time[default value] After unremarkable rectal examination the Olympus video colonoscope was inserted patient's anal canal and was advanced to cecum. Landmarks were identified including the ileocecal valve and appendiceal orifice. Scope was withdrawn systematically. Visualized colonic mucosa showed healthy shiny mucosa with normal healthy-appearing vasculature. Terminal ileum was intubated. Advanced 10 cm. Normal structures of tiny ulcer mass erosion noted. Visualized colonic mucosa showed healthy shiny mucosa was normal healthy-appearing vasculature. In the rectum retroflexion was done which showed hemorrhoids. Anal canal was inspected carefully on the way out and hemorrhoids noted. One of the hemorrhoid appears to have a little defect. Impression Hemorrhoids - with small defect. Most likely cause of the bleeding. Recommendation Advanced diet Resume anticoagulation If rebleed, consider obtaining surgical consult for hemorrhoidectomy. <Electronically signed by Deion Mercedes MD> 05/10/17 1620 . Assessment & Plan 46-year-old gentleman with super morbid obesity, hypertension, diabetes light is type II insulin using, mechanical valve anticoagulated at therapeutic INR presents with 1 day of bright red blood per rectum, nonpainful, tachycardic and hypertensive. Patient underwent colonoscopy with Dr. Mercedes on 05/10/17, was found to have internal hemorrhoids and no other gross pathology. The patient was re- initiated on anti-coagulation on 05/11/17, because of his BMI he cannot be bridged with Lovenox, and because of his artificial valve he is not a candidate for NOAC; thus we titrating him his INR up with Warfarin while maintaining him on a Heparin drip. History of aortic mechanical valve; present admission; stable -Patient on chronic anticoagulation that was reversed due to GI bleed as below -Patient currently receiving warfarin and heparin drip until INR therapeutic -Will continue to anxiously monitor as his INR is slowly climbing Acute lower gastrointestinal hemorrhage, present on admission, resolved -INR 2.4, tachycardic, hemoglobin 11.4 upon presentation; Dr. Mercedes performed colonoscopy and identified internal hemorrhoids -Administer FFP 4 unit, 10 mg vitamin K IV upon arrival -Cross match and hold 2 units PRBC -Transfusion threshold hemoglobin of 8 or if symptomatic Acute Hypertensive urgency, present on admission, resolved -Upon presentations, No headaches, no chest pain, no shortness of breath claims to have taken his medications -Patient was initially managed with IV metoprolol for BP and tachycardia -Continue Amlodipine 10 mg by mouth nightly, lisinopril 40 mg every morning by mouth -Add lasix 40 mg for diuresis in addition to home regimen -Stopped metoprolol in favor of labetalol 200 mg twice a day Super morbid obesity, POA, chronic. Stable -Multiple person assist for any lift or transfer -Bariatric bed and transfer device -Nutritional counseling on DC Tachycardia, chronicity unknown known, POA, stable -Patient has remains tachycardic -Patient states that he has had a fast heart rate like this for a little over a month since his last doctor's visit. -EKG as above -Placed patient on telemetry -Beta blockade as above Chronic diabetes mellitus type II insulin using, POA, stable -Hemoglobin A1c as of : 9.3%, blood glucose today 172 -Medium-dose correctional insulin -Continue home insulin -Diabetes education Chronic kidney disease stage III, POA, stable -Creatinine 1.68, BUN 40, review of outpatient labs for over a year shows BUN chronically elevated, 39 as of 04/07/2017. Creatinine chronically elevated 1.42 as of the same date. -Avoid Nephrotoxic medications when possible -If continues to worsen consider nephrology consultation -Close to baseline with multiple diuretics; patient's weight is up, suspicious for excess fluid versus irregularity of measuring Disposition: Patient's here just waiting for INR to increase; cannot sent home on Lovenox due to his obesity, and novel anticoagulants have not been properly bedded with mechanical valves Pain Evaluation: Adequate Pain Control GI Prophylaxis: Not indicated VTE Prophylaxis: Sub-Q Heparin (Unfractionated) Resuscitation Status: CPR: Attempt Resuscitation Attending Statement The patient was seen and examined together with Dr. Begum on 05/15/2017 and I agree with the history, exam and plan as outlined in the note above. . Nicholas Begum DO May 15, 2017 18:02 Bravo Villegas MD May 15, 2017 19:35
[2017-05-16 02:11] LABS: BASOPHILS % (AUTO) 0.4 % (0-3); EOSINOPHILS % (AUTO) 3.4 % (0-5); MONOCYTES % (AUTO) 6.2 % (4-12); Mean Corpuscular Hemoglobin 27.3 pg (27.0-35.0); NEUTROPHILS % (AUTO) 73.2 % (40-74); Platelet Count 200 bil/L (150-400)
[2017-05-16 03:30] LABS: INR 1.69 ratio
--- NOTE | 2017-05-16 06:27 | NUR ---
No Pain / Heparin IV Drip /HTN / RA No c/o chest pain, pressure or palpitations, Tele DCd, Cardiac click heard per auscultation. IV Heparin drip now within goal, last PTT at 60.6 per Heparin Cardiac Protocol. INR this AM at 1.69. Pt remains Hypertensive with SBPs in the 155-169s, denies Headache or dizziness. No c/o SOB, RA sats 95%.
[2017-05-16] MEDS: Insulin LISPRO High-Dose Scale SUBQ SCH ×4 (08:00→21:44)
[2017-05-16] MEDS: 0.9% Sodium Chloride 250 ML IV SCH (08:15)
[2017-05-16 08:35] VITALS: BP 181/75; PULSE 96; RESP 20; O2SAT 98
[2017-05-16] MEDS: Furosemide 10 mg/mL 4 mL Inj IVPUSH SCH (08:39)
[2017-05-16] MEDS: Polyethylene Glycol (PEG) 17 Gm Powder PO SCH (08:41)
[2017-05-16] MEDS: Insulin GLARgine 100 Unit/mL Syringe SUBQ SCH ×2 (08:41→21:44)
[2017-05-16 12:55] VITALS: BP 189/76; PULSE 99; RESP 20; O2SAT 97
--- NOTE | 2017-05-16 14:55 | PCM.PNMED ---
Subjective Date of Service May 16, 2017 Subjective Overnight there were no acute events. Vitals this morning were 36.9C, HR 99, RR 20, BP 189/76, O2 94% on RA. Patient is feeling much better overall but is depressed as to his slow climbing INR. He denies any bleeding from his gums, skin, or rectum, and associated hypertensive symptoms (headache, N/V, vision changes, chest pain). He is able to eat, void, and ambulate without difficulty. Exam Vital Signs Vital Sign - Last Date Time Temp Pulse Resp B/P Pulse Ox O2 Delivery O2 Flow Rate FiO2 05/16/17 12:55 36.8 99 20 189/76 97 Room Air Intake and Output 05/15/17 05/15/17 05/16/17 Cumulative From/Thru 15:00 23:00 07:00 05/09/17 20:05 - 05/16/17 06:25 Intake Total 2065 ml 1181 ml 48446 ml Output Total 4078 ml Balance 2065 ml 1181 ml 45907 ml Intake Oral 1680 ml 800 ml 60888 ml IV Total 385 ml 381 ml 4413 ml Packed Cells 200 ml FFP 436 ml Output Urine Total 2627 ml Stool Total 1450 ml Emesis 1 ml # Voids 4 2 26 # Bowel Movements 1 4 Exam General: Alert and Oriented x3, morbidly obese male in NAD HEENT: PERRLA, EOMI, no conjunctival injection or gum bleeding Neck: Supple with full ROM for him but difficult to assess due to obesity Cardio: RRR with audible mechanical valve click, no rubs or gallops Resp: Clear but distant breath sounds due to obesity, no wheezing/rales/rhonchi Abd: Obese abdomen, soft and nontender, bowel sounds faint due to obesity Extremities: Chronic venous stasis changes and mild edema in bilateral LE, no tenderness/erythema noted Skin: Normal temperature and turgor, no rash or ulcers Neuro: CN 2-12 grossly intact, normal strength and sensation in all extremities Psych: Pleasant and cooperative but is depressed about staying longer IVs and Medications Medications Reviewed: Medications were reviewed in detail Lab and Diagnostics Result Diagram: 05/16/1715405/16/17154 Additional Diagnostics Colonoscopy PROCEDURE IN DETAIL: Prep adequate After unremarkable rectal examination the Olympus video colonoscope was inserted patient's anal canal and was advanced to cecum. Landmarks were identified including the ileocecal valve and appendiceal orifice. Scope was withdrawn systematically. Visualized colonic mucosa showed healthy shiny mucosa with normal healthy-appearing vasculature. Terminal ileum was intubated. Advanced 10 cm. Normal structures of tiny ulcer mass erosion noted. Visualized colonic mucosa showed healthy shiny mucosa was normal healthy-appearing vasculature. In the rectum retroflexion was done which showed hemorrhoids. Anal canal was inspected carefully on the way out and hemorrhoids noted. One of the hemorrhoid appears to have a little defect. Impression Hemorrhoids - with small defect. Most likely cause of the bleeding. Recommendation Advanced diet Resume anticoagulation If rebleed, consider obtaining surgical consult for hemorrhoidectomy. <Electronically signed by Deion Mercedes MD> 05/10/17 1620 Assessment & Plan 46-year-old gentleman with super morbid obesity, hypertension, diabetes type II insulin using, mechanical valve anticoagulated at therapeutic INR presents with 1 day of bright red blood per rectum without pain, tachycardic and hypertensive. Patient underwent colonoscopy with Dr. Mercedes on 05/10/17, was found to have internal hemorrhoids and no other gross pathology. The patient was re-initiated on anti-coagulation on 05/11/17, because of his BMI he cannot be bridged with Lovenox, and because of his artificial valve he is not a candidate for NOAC; thus we are titrating his INR up with Warfarin while maintaining him on a Heparin drip. History of aortic mechanical valve; present admission; stable -Patient on chronic anticoagulation that was reversed due to GI bleed as below -Patient currently receiving warfarin and heparin drip until INR therapeutic per pharmacy -Will continue to monitor as his INR is slowly climbing (1.69 today) Acute lower gastrointestinal hemorrhage, present on admission, resolved -INR 2.4, tachycardic, hemoglobin 11.4 upon presentation; Dr. Mercedes performed colonoscopy and identified internal hemorrhoids -Administered FFP 4 unit, 10 mg vitamin K IV upon arrival -Cross match and hold 2 units PRBC -Trending H/H, transfusion threshold hemoglobin of 8 or if symptomatic Acute Hypertensive urgency, present on admission, resolved -Upon presentations, No headaches, no chest pain, no shortness of breath claims to have taken his medications -Patient was initially managed with IV metoprolol for BP and tachycardia -Continue Amlodipine 10 mg by mouth nightly, lisinopril 40 mg every morning by mouth -Add lasix 40 mg for diuresis in addition to home regimen -Metoprolol stopped for Labetalol IV 200 BID -Added clonidine patch 0.1mg in addition to his regimen as BP was still high Super morbid obesity, POA, chronic. Stable -Multiple person assist for any lift or transfer -Bariatric bed and transfer device -Nutritional counseling on DC Tachycardia, chronicity unknown known, POA, stable -Patient has remains tachycardic or borderline tachycardic -Patient states that he has had a fast heart rate like this for a little over a month since his last doctor's visit. -Placed patient on telemetry -Labetalol IV 200 BID on board Chronic diabetes mellitus type II insulin using, POA, stable -Hemoglobin A1c as of : 9.3%, blood glucose today 156 -Medium-dose correctional insulin -Continue home insulin -Diabetes education Chronic kidney disease stage III, POA, stable -Creatinine 1.67, BUN 31, review of outpatient labs for over a year shows BUN/ Cr chronically elevated, 39 and 1.42 as of 04/07/2017. -Avoid Nephrotoxic medications when possible -If continues to worsen consider nephrology consultation -Close to baseline with multiple diuretics; patient's weight is up, suspicious for excess fluid versus irregularity of measuring PRN Acetaminophen for mild pain when necessary. Bowel regimen Senna and MiraLAX scheduled and PRN. Zofran when necessary for nausea and vomiting. Disposition: Patient is still here waiting for INR to increase; he cannot sent home on Lovenox due to his obesity, and novel anticoagulants have not been properly bedded with mechanical valves Pain Evaluation: Adequate Pain Control GI Prophylaxis: Not indicated VTE Prophylaxis: Sub-Q Heparin (Unfractionated) Resuscitation Status: CPR: Attempt Resuscitation Attending Statement The patient was seen and examined together with Dr. Wallis on 05/16/2017 and I agree with the history, exam and plan as outlined in the note above. . Lul Wallis DO May 16, 2017 14:54 Bravo Villegas MD May 17, 2017 20:21
[2017-05-16 16:53] VITALS: BP 174/81; PULSE 99; RESP 20; O2SAT 95
[2017-05-16 19:48] VITALS: BP 176/88; PULSE 106; RESP 18; O2SAT 94
--- NOTE | 2017-05-16 19:48 | NUR ---
HTN pt hypertensive through the day despite scheduled BP meds, resident aware. new order for clonidine patch. Report given to oncoming RN.
[2017-05-16 23:17] VITALS: BP 191/77; PULSE 105; RESP 20; O2SAT 96
[2017-05-17] VITALS: BP 148/77; PULSE 101; RESP 20; O2SAT 95
[2017-05-17] MEDS: Heparin 25K Unit/500mL 0.45 NS 25,000 UNIT in IV Premix 1 EACH IV SCH (03:52)
[2017-05-17 06:12] LABS: BASOPHILS % (AUTO) 0.4 % (0-3); EOSINOPHILS % (AUTO) 3.5 % (0-5); MONOCYTES % (AUTO) 8.1 % (4-12); Mean Corpuscular Hemoglobin 27.8 pg (27.0-35.0); Mean Corpuscular Volume 88.8 fL (81-100); NEUTROPHILS % (AUTO) 73.8 % (40-74); Platelet Count 250 bil/L (150-400)
[2017-05-17 06:58] LABS: INR 2.35 ratio
--- NOTE | 2017-05-17 07:21 | NUR ---
HTN /IV Heparin / Labs Pt hypertensive tonight with SBPs in the 170s at HS before HS anti-hypertensive medications given. Next BP check, BP elevated to 191/77 but Pt had just been walking around the room. BP rechecked about 1 hour later, after Pt had been resting in bed, and BP reduced to 148/77. IV heparin infusing at 1600 units/ hour, PTT this morning of 70.3 and INR of 2.35. Patient made aware of lab results.
[2017-05-17] MEDS: Insulin LISPRO High-Dose Scale SUBQ SCH ×2 (08:00→12:03)
[2017-05-17] MEDS: 0.9% Sodium Chloride 250 ML IV SCH (08:15)
[2017-05-17 08:48] VITALS: BP 169/85; PULSE 102; RESP 18; O2SAT 96
[2017-05-17] MEDS: Insulin GLARgine 100 Unit/mL Syringe SUBQ SCH (08:59)
[2017-05-17] MEDS: Polyethylene Glycol (PEG) 17 Gm Powder PO SCH (09:00)
[2017-05-17] MEDS: Furosemide 10 mg/mL 4 mL Inj IVPUSH SCH (09:00)
[2017-05-17 13:09] VITALS: BP 190/95; PULSE 100; RESP 18; O2SAT 94
[2017-05-17 13:15] VITALS: BP 173/78; PULSE 96
[2017-05-17 13:20] LABS: INR 2.46 ratio
--- NOTE | 2017-05-17 15:14 | PCM.DIMED ---
Lul Wallis DO 05/17/17 1514: Discharge Instructions Date of Service May 17, 2017 Dates of Hospitalization May 09, 2017 at 23:41 Discharge Diagnosis Discharge Diagnosis History of aortic mechanical valve; present admission; stable Acute lower gastrointestinal hemorrhage, present on admission, resolved Acute Hypertensive urgency, present on admission, resolved Super morbid obesity, POA, chronic. Stable Tachycardia, chronicity unknown known, POA, stable Chronic diabetes mellitus type II insulin using, POA, stable Chronic kidney disease stage III, POA, stable Medication Instructions Additional med instructions Resume your home dose of warfarin. Follow up in the warfarin clinic at your scheduled appointment on 05/19/17. Diet Discharge Diet: No restrictions Activity Discharge Activity: No restrictions Call your provider Call your provider for: Shortness of breath, Bleeding, Chest pain, Weakness ( unilateral) Patient Instructions Patient Instructions Resume your normal warfarin dose and follow up in the clinic at your appointment on , 05/19/17. Follow up with Dr. Manzano for your blood pressure in 1-2 weeks. Follow-up Provider: BC MANZANO DO Follow-up with PCP in: 2 weeks (1-2 weeks) Bravo Villegas MD 05/17/172020: Discharge Instructions Attending's Statement The patient was seen and examined together with Dr. Wallis on 05/17/2017 and I agree with the history, exam and plan as outlined in the note above. . Lul Wallis DO May 17, 2017 15:14 Bravo Villegas MD May 17, 2017 20:21
--- NOTE | 2017-05-17 15:33 | NUR ---
Social Work Note: Discharge Data& Assessment: EMR reviewed. Per pt is medically ready to discharge home via POV. Sw met with pt and pt at bedside to confirm discharge plan and assess for any unmet needs. Nicholas Curiel is a 46 year old male admitted on 05/09/2017 for acute GI bleed. Per pt has medically improved and is ready to discharge. PT has cleared pt to discharge home. Pt and pt denies any other needs. No other discharge needs identified. Plan: Per pt is medically ready to discharge home via POV. Pt and pt denies any other needs. No other discharge needs identified. YESENIA Lopez
--- NOTE | 2017-05-17 16:10 | NUR ---
Discharge of patient Reviewed discharge instructions with patient and patient's . Patient verbalized understanding. Walked patient out of hospital with prescriptions and instructions. IV previously discontinued. Patient left hospital with and to home self care.
--- NOTE | 2017-05-17 18:00 | PCM.DC.MED ---
Discharge Summary Date of Service May 17, 2017 Dates of Hospitalization Date of Hospital Admission May 09, 2017 at 23:41 Date of Discharge: May 17, 2017 Providers: Admitting Physician: Bravo Villegas MD Primary Care Physician: Wendy Morales DO Attending Physician: Bravo Villegas MD Diagnosis at Time of Discharge Diagnosis at Time of Discharge History of aortic mechanical valve Acute lower gastrointestinal hemorrhage Acute Hypertensive urgency Super morbid obesity Tachycardia, chronicity Chronic diabetes mellitus type II insulin Chronic kidney disease stage III Procedures Other Diagnostics Colonoscopy PROCEDURE IN DETAIL: Prep adequate After unremarkable rectal examination the Olympus video colonoscope was inserted patient's anal canal and was advanced to cecum. Landmarks were identified including the ileocecal valve and appendiceal orifice. Scope was withdrawn systematically. Visualized colonic mucosa showed healthy shiny mucosa with normal healthy-appearing vasculature. Terminal ileum was intubated. Advanced 10 cm. Normal structures of tiny ulcer mass erosion noted. Visualized colonic mucosa showed healthy shiny mucosa was normal healthy-appearing vasculature. In the rectum retroflexion was done which showed hemorrhoids. Anal canal was inspected carefully on the way out and hemorrhoids noted. One of the hemorrhoid appears to have a little defect. Impression Hemorrhoids - with small defect. Most likely cause of the bleeding. Recommendation Advanced diet Resume anticoagulation If rebleed, consider obtaining surgical consult for hemorrhoidectomy. <Electronically signed by Deion Mercedes MD> 05/10/17 1620 Brief History Patient is a morbidly obese 46-year-old gentleman history of hypertension, congestive heart failure, bicuspid aortic valve status post mechanical valve placement, warfarin using, presents with 1 day bright red blood per rectum. First onset this morning when first using the commode, denies any lightheadedness, dizziness, pain, said he typically strains a little with defecation. Came to the emergency department after noticing he soaked through his pants and into the couch cushion this afternoon. Claims to have one instance of this before approximately a year ago was not described and self resolved. Denies any history of known hemorrhoids. Denies any lightheadedness , dizziness, chest pain, shortness of breath, constipation or diarrhea, no nausea or vomiting, no weakness, no dysuria, no numbness weakness tingling in his arms anterior legs, no changes in vision, no confusion. The patients anticoagulation was reversed with both vitamin K and FFP in anticipation for endoscopy with Dr. Mercedes which revealed internal hemorrhoids. He was then re-anticoagulated due to his mechanical valve without signs or symptoms of any bleeding. Due to his body habitus, he was unable to be bridged as an outpatient with Lovenox and the new oral anticoagulants are unproven in a patient his size, so we had to wait until his INR became therapeutic again at 2.5. Hospital Course 46-year-old gentleman with super morbid obesity, hypertension, diabetes type II insulin using, mechanical valve anticoagulated at therapeutic INR presents with 1 day of bright red blood per rectum without pain, tachycardic and hypertensive. Patient underwent colonoscopy with Dr. Mercedes on 05/10/17, was found to have internal hemorrhoids and no other gross pathology. The patient was re-initiated on anti-coagulation on 05/11/17, because of his BMI he cannot be bridged with Lovenox, and because of his artificial valve he is not a candidate for NOAC; thus we are titrating his INR up with Warfarin while maintaining him on a Heparin drip. History of aortic mechanical valve; present admission; stable -Patient on chronic anticoagulation that was reversed due to GI bleed as below -Patient received warfarin and concomitant heparin drip up until discharge -INR was 2.46 this afternoon, up from 2.39 early this morning Acute lower gastrointestinal hemorrhage, present on admission, resolved -INR 2.4, tachycardic, hemoglobin 11.4 upon presentation; Dr. Mercedes performed colonoscopy and identified internal hemorrhoids -Administered FFP 4 unit, 10 mg vitamin K IV upon arrival -H/H stable with no ongoing bleeding Acute Hypertensive urgency, present on admission, resolved -No headaches, chest pain, shortness of breath during entire admission -Continue home BP regimen, follow up with his PCP to optimize medication -Counseled to lose weight, watch his salt intake Super morbid obesity, POA, chronic. Stable -Emphasized diet and nutrition as an outpatient, resources available in the community Tachycardia, chronicity unknown, POA, stable -Patient tachycardic or borderline tachycardic during most of his hospital stay -Patient reinforced that he has had a fast heart rate like this for a little over a month since his last doctor's visit. -Continue home metoprolol with follow up to his PCP for medicine optimization Chronic diabetes mellitus type II insulin using, POA, stable -Hemoglobin A1c 04/07/17 was 9.3% -Continue home insulin -Diet and diabetic education counseled, gave [facility] resources Chronic kidney disease stage III, POA, stable -Creatinine bumped between 1.4 and 1.6 during his hospital course -Counseled on avoiding nephrotoxic medications (NSAIDs) at home -Follow up with PCP to monitor Disposition: Patient was discharged this afternoon in stable and improved condition. He is fully aware of the risks and events of his many medical conditions and on which conditions should he return to the hospital. He will follow up in the coumadin clinic [facility] and see his PCP, Dr. Manzano, about his blood pressure and kidney disease. Exam Vital Signs (Last) Date Time Temp Pulse Resp B/P Pulse Ox O2 Delivery O2 Flow Rate FiO2 05/17/17 13:15 96 173/78 05/17/17 13:09 36.7 18 94 Room Air Exam General: Alert and Oriented x3, morbidly obese male in NAD HEENT: PERRLA, EOMI, no conjunctival injection or gum bleeding Neck: Supple with full ROM for him but difficult to assess due to obesity Cardio: RRR with audible mechanical valve click, no rubs or gallops Resp: Clear but distant breath sounds due to obesity, no wheezing/rales/rhonchi Abd: Obese abdomen, soft and nontender, bowel sounds faint due to obesity Extremities: Chronic venous stasis changes and mild edema in bilateral LE, no tenderness/erythema Skin: Normal temperature and turgor, no rash or ulcers Neuro: CN 2-12 grossly intact, normal strength and sensation in all extremities Psych: Pleasant and cooperative and excited to discharge Test 05/09/17 20:49 05/10/17 01:09 05/15/17 04:00 05/17/17 05:30 Hold Gaona Top Tube Received (Received) Hold Urine Received (Received) Phosphorus Level 4.1mg/dL (2.5-4.9) Magnesium Level 2.0mg/dL (1.6-2.6) White Blood Count 10.8th/mm3 (3.8-10.1) Red Blood Count 3.31mil/mm3 (4.40-5.80) Hemoglobin 9.2g/dL (13.8-17.2) Hematocrit 29.4% (41.0-50.0) Mean Corpuscular Volume 88.8fL (81-100) Mean Corpuscular Hemoglobin 27.8pg (27.0-35.0) Mean Corpuscular Hemoglobin Concent 31.3% (32.0-37.0) Red Cell Distribution Width 14.9% (12.3-15.4) Platelet Count 250bil/L (150-400) Neutrophils (%) (Auto) 73.8% (40-74) Lymphocytes (%) (Auto) 13.2% (14-46) Monocytes (%) (Auto) 8.1% (4-12) Eosinophils (%) (Auto) 3.5% (0-5) Basophils (%) (Auto) 0.4% (0-3) Activated Partial Thromboplast Time 70.3sec (22.8-33.0) Sodium Level 136mEq/L (134-144) Potassium Level 4.1mEq/L (3.5-5.2) Chloride Level 100mEq/L (97-108) Carbon Dioxide Level 25mmol/L (18-29) Blood Urea Nitrogen 33mg/dL (6-24) Creatinine 1.64mg/dL (0.76-1.27) Estimat Glomerular Filtration Rate 48mL/min (>59) Glucose Level 125mg/dL (60-99) Calcium Level 9.1mg/dL (8.5-10.1) Total Bilirubin 0.2mg/dL (0.0-1.2) Aspartate Amino Transf (AST/SGOT) 16U/L (0-50) Alanine Aminotransferase (ALT/SGPT) 14U/L (0-44) Alkaline Phosphatase 144U/L (25-150) Total Protein 7.1g/dL (6.4-8.4) Albumin 2.8g/dL (3.4-5.0) Test 05/17/17 12:45 Prothrombin Time 26.8sec (8.1-12.5) Prothromb Time International Ratio 2.46ratio Discharge Medications Discharge Medications Allopurinol (Allopurinol) 100 Mg Tablet 100 MG PO BID (Reported) Amlodipine (Amlodipine) 10 Mg Tablet 10 MG PO HS (Reported) Atorvastatin Calcium (Atorvastatin Calcium) 40 Mg Tablet 40 MG PO HS (Reported) Insulin Detemir (Levemir Flextouch) 100 Unit/1 Ml Insuln.pen 80 UNIT SQ HS ( Reported) Insulin Detemir (Levemir Flextouch) 100 Unit/1 Ml Insuln.pen 70 UNIT SQ MORNING (Reported) Lisinopril (Lisinopril) 40 Mg Tablet 40 MG PO MORNING (Reported) Metformin (Metformin) 500 Mg Tablet 500 MG PO BID (Reported) Metoprolol Tartrate (Metoprolol Tartrate) 100 Mg Tablet 100 MG PO BID (Reported ) Multivitamin (Multivitamins) 1 Each Capsule 1 EACH PO DAILY (Reported) Warfarin Sodium (Warfarin Sodium) 7.5 Mg Tablet 7.5 MG PO ,,,,TUE,TUE ( Reported) Warfarin Sodium (Warfarin Sodium) 10 Mg Tablet 10 MG PO TUESDAY (Reported) Additional med instructions Resume your home dose of warfarin. Follow up in the warfarin clinic at your scheduled appointment on 05/19/17. Followup Plan Discharge Diet: No restrictions Discharge Activity: No restrictions Patient Instructions Resume your normal warfarin dose and follow up in the clinic at your appointment on , 05/19/17. Follow up with Dr. Manzano for your blood pressure in 1-2 weeks. Follow-up Provider: BC MANZANO DO Follow-up with PCP in: 2 weeks (1-2 weeks) Time spent Greater than 30 minutes was spent in preparation of discharge with greater than 50% of that time dedicated to patient counseling and coordination of care. . Attending Statement The patient was seen and examined together with Dr. Wallis on 05/17/2017 and I agree with the history, exam and plan as outlined in the note above. . copies to: BC MANZANO Jeffery S DO May 17, 2017 18:00 Bravo Villegas MD May 17, 2017 20:22
== END 2017-05-17 16:20 | disposition home or self-care (01) | DRG 394 ==
LOC: SED 19:47 → PCC 23:41
PROVIDERS: ADMIT Internal Medicine; ATTEND Hospitalist
PROC: 30233K1 Transfusion of Nonautologous Frozen Plasma into Peripheral Vein, Percutaneous Approach (ICD-10-PCS; principal; 2017-05-10 17:00)
DX: K64.8 Other hemorrhoids (principal); Z68.44 Body mass index [BMI] 60.0-69.9, adult; I16.0 Hypertensive urgency; E66.01 Morbid (severe) obesity due to excess calories; I12.9 Hypertensive chronic kidney disease with stage 1 through stage 4 chronic kidney disease, or unspecified chronic kidney disease; N18.3 Chronic kidney disease, stage 3 (moderate); E11.620 Type 2 diabetes mellitus with diabetic dermatitis; Z95.2 Presence of prosthetic heart valve; Z79.4 Long term (current) use of insulin; Z79.01 Long term (current) use of anticoagulants